=== PATIENT | female | born 1995 | race Caucasian/White ===

== ENCOUNTER → 2020-06-11 06:55 | Outpatient (BNVA) | payer BC, SELFPAY | PROVIDERS: PCP Family Medicine; Visit Provider Surgery | DX: Z76.89 Persons encountering health services in other specified circumstances (principal) ==

== ENCOUNTER → 2020-07-12 08:03 | Outpatient (BNVA) | payer BC, SELFPAY | PROVIDERS: PCP Family Medicine; Referring Provider Family Medicine; Visit Provider Surgery | DX: Z76.89 Persons encountering health services in other specified circumstances (principal) ==

== ENCOUNTER → 2020-10-13 08:26 | Outpatient (BNVA) | payer BC, SELFPAY | PROVIDERS: PCP Family Medicine; Visit Provider Physician Assistant ==

== ENCOUNTER 2020-10-18 07:05 | Outpatient (REF) | payer BC, SELFPAY ==
[2020-10-18 07:40] LABS: MANUAL DIFF FLAG NO
[2020-10-18 07:46] LABS: Basophils Percent Auto 0.6 % (0-2); Eosinophils Absolute Auto 0.1 X10*3/uL (0.0-0.4); Eosinophils Percent Auto 1.7 % (0-4); Hematocrit 39.6 % (37-47); Hemoglobin 13.2 g/dl (12.0-16.0); Imm Gran Abs Auto 0.02 X10*3/uL (0.00-0.03); Imm Gran Pct Auto 0.3 % (0.0-0.4); Lymphocytes Percent Auto 41.8 % (20-40); Mean Corpuscular HGB Conc 33.3 g/dl (31.0-35.0); Mean Corpuscular Hemoglobin 29.8 pg (27.0-33.0); Mean Corpuscular Volume 89.4 fL (80-98); Mean Platelet Volume 9.3 fL (9.4-12.3); Monocytes Absolute Auto 0.5 X10*3/uL (0.1-1.2); Monocytes Percent Auto 6.7 % (2-11); Neutrophils Absolute Auto 3.5 X10*3/uL (2.0-8.3); Neutrophils Percent Auto 48.9 % (45-73); Platelet Count 374 X10*3/uL (160-400); Red Blood Count 4.43 X10*6/uL (4.20-5.50); Red Cell Distribution Width 12.1 % (11.0-16.0); White Blood Count 7.2 X10*3/uL (4.8-10.8)
[2020-10-18 07:56] LABS: Estimated Average Glucose 97 mg/dL
[2020-10-18 08:40] LABS: Alanine Aminotransferase 18 U/L (0-31); Albumin Level 4.5 g/dL (3.5-5.0); Alkaline Phosphatase 74 U/L (39-117); Anion Gap 12 (12-20); Aspartate Amino Transferase 15 U/L (5-31); Bilirubin Total 0.4 mg/dL (0.0-1.0); Blood Urea Nitrogen 10 mg/dL (9-16); C Reactive Protein 0.27 mg/dL (< or = 0.50); Calcium 9.6 mg/dL (8.4-10.2); Carbon Dioxide 28 mmol/L (22-29); Chloride 105 mmol/L (96-108); Cholesterol 193 mg/dL; Estimated Glomerular Filt Rate > 60; Glucose Fasting 95 mg/dL (60-99); HDL Cholesterol 65 mg/dL; Iron 136 mcg/dL (30-160); LDL Cholesterol Calculated 109 mg/dl; Percent Iron Saturation 48 % (15-50); Potassium 4.2 mmol/L (3.3-5.1); Sodium 141 mmol/L (135-145); Total Iron Binding Capacity 286 mcg/dL (228-428); Total Protein 7.2 g/dL (6.5-8.0); Triglycerides 96 mg/dL; Unsaturated Iron Binding 150 ug/dL
[2020-10-18 08:45] LABS: Ferritin 124 ng/mL (10-122); TSH reflex Free T4 1.36 uIU/mL (0.32-4.0); Vitamin D 25-OH Total 15.6 ng/mL (>30)
[2020-10-18 09:05] LABS: Folate 10.6 ng/mL (> or = 4.0); Vitamin B12 265 pg/mL (200-900)
[2020-10-19 09:53] LABS: Calcium (PTHI) 9.5 mg/dL (8.6-10.2); PTHI 71 pg/mL (14-64)
[2020-10-20 15:33] LABS: Zinc 91 mcg/dL (60-130)
[2020-10-22 18:06] LABS: Vitamin A 43 mcg/dL (38-98)
[2020-10-23 11:51] LABS: Vitamin B1 12 nmol/L (8-30)
== END 2020-10-18 07:06 | disposition home or self-care (01) ==
LOC: HO.LAB 07:05
PROVIDERS: PCP Family Medicine; Visit Provider Physician Assistant
DX: E66.01 Morbid (severe) obesity due to excess calories (principal); K91.2 Postsurgical malabsorption, not elsewhere classified; Z68.37 Body mass index [BMI] 37.0-37.9, adult; Z90.3 Acquired absence of stomach [part of]; Z98.84 Bariatric surgery status
CPT/HCPCS: 36415; 80053; 80061; 82306; 82607; 82728; 82746; 83036; 83525; 83540; 83970; 84425; 84443; 84590; 84630; 85025; 86140

== ENCOUNTER → 2020-10-19 08:54 | Outpatient (BNVA) | payer BC, SELFPAY | PROVIDERS: PCP Family Medicine; Visit Provider Dietitian, Registered ==

== ENCOUNTER 2023-03-22 11:55 | Outpatient (REF) | payer BC, SELFPAY ==
[2023-03-22 13:44] LABS: Estimated Average Glucose 91 mg/dL; Hemoglobin A1c % 4.8 %
[2023-03-22 14:20] LABS: Cholesterol 177 mg/dL; HDL Cholesterol 51 mg/dL; LDL Cholesterol Calculated 107 mg/dl; Triglycerides 99 mg/dL
[2023-03-23 05:07] LABS: ~HepC Num1 0.09 S/CO (0.00-0.79); ~Hepatitis C Antibody Nonreactive (Nonreactive)
[2023-03-23 05:23] LABS: HIV AB/AG Nonreactive (Nonreactive); HIV Num 1 0.06 S/CO (0.00-0.99)
== END 2023-03-22 11:56 | disposition home or self-care (01) ==
LOC: HO.HHCL 11:55
PROVIDERS: Visit Provider Family Medicine
DX: Z00.00 Encounter for general adult medical examination without abnormal findings (principal); Z11.4 Encounter for screening for human immunodeficiency virus [HIV]
CPT/HCPCS: 36415; 80061; 83036; 86803; 87389

== ENCOUNTER 2023-03-29 13:29 | Outpatient (REF) | payer BC, SELFPAY ==
--- NOTE | ~2023-03-29 | US_ITS ---
EXAMINATION: US PELVIC CLINICAL INFORMATION: Pelvic pain. Last menstrual period 03/23/2023. COMPARISON: None. TECHNIQUE: Multiple best-scale and color Doppler images of the right upper abdomen were obtained using real-time ultrasound. FINDINGS: The uterus is heterogeneous and measures 6.5 x 2.6 x 3.6 cm and is anteverted. No discrete fibroids are identified. Nabothian cysts present. No significant free fluid. Left ovary measures 3.2 x 1.9 x 2.3 cm, volume 7.3 mL, and is unremarkable. Right ovary measures 4.0 x 1.8 x 1.7 cm, volume 6.4 mL. Right ovarian 1.7 x 1.7 x 1.6 cm cyst appears simple, likely physiologic, and there is no indication for follow-up imaging. Endometrium is multilayered with thickness of 0.8 cm. US/US pelvic and transvag pre pos IMPRESSION: 1. No discrete fibroids. 2. Endometrium is multilayered with thickness of 0.8 cm. 3. Right ovarian 1.7 cm cyst appears simple, likely physiologic, and there is no specific indication for follow-up imaging. Correlation with clinical exam recommended to determine further management.
== END 2023-03-29 13:30 | disposition home or self-care (01) ==
LOC: HO.US 13:29
PROVIDERS: PCP Family Medicine; Visit Provider Family Medicine
DX: R10.2 Pelvic and perineal pain (principal)
CPT/HCPCS: 76830; 76856

== ENCOUNTER 2023-06-27 11:10 | Outpatient (AMB) | payer BC, SELFPAY ==
--- NOTE | 2023-06-27 11:20 | MHC.OFFVIS ---
Intake Vital Signs 06/27/23 11:25 Height 5 ft 2.5 in Weight 163 lb BMI 29.3 BP 114/55 L Blood Pressure Location Rt brachial Position Sitting Pulse 85 Intake Visit Reasons: Hemorrhoids Intake Note: This patient presents for an assessment for hemorrhoids. Patient c/o; reports minimal pain, denies rectal bleeding, reports straining with bowel movements. Professor Of Theatre Required: No Adult Specialist: Adult Specialist Present (Manuela-Manisha) Accompanied by: Self / Same As Patient Allergies squid [SQUID] Allergy (Unknown, Unverified 05/27/20 17:36) HIVES Squid Allergy (Unknown, Uncoded 06/10/20 15:38) Rash Medication List - Last Reconciled 06/27/23 by Shelton Santana MD calcium citrate-vitamin D3 250 mg-5 mcg (200 unit) 2 tabs PO BID calcium citrate-vitamin D3 315 mg-6.25 mcg (250 unit) 1 tab PO DAILY docusate sodium (Colace) 100 mg PO DAILY multivitamin 1 tab PO DAILY phentermine 37.5 mg PO DAILY phentermine 37.5 mg PO DAILY valacyclovir (Valtrex) 500 mg PO DAILY HPI Hemorrhoids HPI Details 28-year-old female referred for hemorrhoids. She says that she has had hemorrhoids since 2018. She said she had issues with chronic constipation after she had sleeve gastrectomy for obesity at that time. She could feel external hemorrhoids that would occasionally become swollen. She had a revision of her sleeve gastrectomy last October,. Since then, she says that she has had more frequent bowel movements and therefore has been having a lot of irritation with her hemorrhoids. She says that these hemorrhoids frequently become swollen and a last month, she says that she could not even sit down for 3 weeks because of the pain and swelling. She also has noticed some significant pain with bowel movements recently. She says that she feels this sharp pain like a knife cutting her anus whenever she passes stools. She would notice small amounts of blood on wiping. She has had no anal surgery in the past. She has had no vaginal delivery. [facility] Medical History (Updated 06/27/23 @ 11:45 by Shelton Santana MD) Anal fissure Hemorrhoids with complication BMI 37.0-37.9, adult Intestinal malabsorption following gastrectomy Obesity Intestinal malabsorption Surgical History S/P laparoscopic sleeve gastrectomy History of sleeve gastrectomy Family History Father No problems noted. Mother Cancer Arthritis of knee Diabetes Hypertension Brother No problems noted. Brother No problems noted. Brother No problems noted. Sister No problems noted. Sister No problems noted. Social History Alcohol intake: unknown Review of Systems Const Denies chills and Denies fever(s) Card Denies chest pain, Denies dyspnea and Denies dyspnea on exertion Resp Denies cough, Denies dyspnea and Denies dyspnea on exertion GI Denies hematochezia and Denies change in bowel habits Denies hematuria Musc Denies back pain and Denies limited range of motion Neuro Denies focal weakness and Denies convulsions Psych Denies depression and Denies mood swings Physical Exam Const General: comfortable and no acute distress Orientation/consciousness: patient oriented x3 Neck Neck: Yes no lymphadenopathy Resp Auscultation: clear to auscultation bilaterally Cardio Rhythm: regular rhythm GI Other: Rectal exam shows moderate size external hemorrhoids anteriorly there was note of a posterior midline fissure on the distal dentate line seen with retraction of the buttocks. Palpation (GI): Soft to palpation, nontender and no guarding Neuro General: patient oriented x3 Office Procedures Anoscopy She was in qiana-knife position. The anoscope was gently inserted. A full examination of the anal canal was done. She did not appear to be hypertonic with regards to her sphincter although she did have tenderness and pain with insertion of the anoscope. She had this mixed internal external column, moderate size anteriorly. There were no other lesions. Again this posterior midline fissure on the posterior dentate line was seen [id number] Assessment & Plan Assessment & Plan (1) Hemorrhoids with complication: Code(s): K64.8 - Other hemorrhoids Plan: Examination shows a mixed internal external hemorrhoidal column anteriorly.I explained to her the technique of exam under anesthesia and hemorrhoidectomy. I reviewed the risks including but not limited to bleeding, infections, pain and poor healing, as well as the benefits and alternatives. She says that she has had significant issues and would like to proceed with hemorrhoidectomy as these hemorrhoids have been bothering her a lot. She wants to proceed with hemorrhoidectomy. Examination also shows a distal anoderm posterior midline fissure. I told her that we will probably proceed with lateral internal sphincterotomy as well as she complains of pain with bowel movements like a knife cutting her anus. I reviewed with her what to expect postoperatively. (2) Anal fissure: Code(s): K60.2 - Anal fissure, unspecified Plan: She also understands the technique of lateral internal sphincterotomy Coding Level of Care Code New Pt Level 3 (11818) Diagnoses Hemorrhoids with complication K64.8 Anal fissure K60.2 CPT Codes Details - CPT: 68477-[id number] ([id number])
[2023-06-27 11:25] VITALS: BP 114/55; PULSE 85; BMI 29.3
== END 2023-06-27 11:42 | disposition home or self-care (01) ==
PROVIDERS: PCP Family Medicine; Referring Provider Family Medicine; Visit Provider Surgery
DX: K64.8 Other hemorrhoids (principal); K60.2 Anal fissure, unspecified
CPT/HCPCS: 46600; 99204

== ENCOUNTER → 2023-06-27 11:10 | Outpatient (BNVA) | payer BC, SELFPAY | PROVIDERS: PCP Family Medicine; Referring Provider Family Medicine; Visit Provider Surgery | DX: K64.8 Other hemorrhoids (principal); K64.4 Residual hemorrhoidal skin tags; K60.2 Anal fissure, unspecified | CPT/HCPCS: 46600 ==

== ENCOUNTER 2023-07-20 08:03 | Day surgery (SDC) | payer BC, SELFPAY ==
[2023-07-18 14:42] VITALS: BMI 29.3
--- NOTE | 2023-07-19 10:12 | HO.ANESPROP2 ---
Documented by User: Iris Messer NP 07/19/23 10:12 HPI - Anesthesia Eval Consult details Narrative: 28yo F for Hemorrhoidectomy, Lateral Internal Sphincterotomy PMFSH Active Problems Active Problems: All Active Problems (Updated 06/27/23 @ 11:45 by Shelton Santana MD) Anal fissure (Acute) Hemorrhoids with complication (Acute) BMI 37.0-37.9, adult (Acute) S/P laparoscopic sleeve gastrectomy (Acute) Intestinal malabsorption following gastrectomy (Acute) BMI 32.0-32.9,adult (Acute) BMI 31.0-31.9,adult (Acute) Obesity (Acute) Intestinal malabsorption (Acute) Past Medical History Medical History Anal fissure Hemorrhoids with complication BMI 37.0-37.9, adult Intestinal malabsorption following gastrectomy Obesity Intestinal malabsorption Family History Family History Father No problems noted. Mother Cancer Arthritis of knee Diabetes Hypertension Brother No problems noted. Brother No problems noted. Brother No problems noted. Sister No problems noted. Sister No problems noted. Surgical History Surgical History S/P laparoscopic sleeve gastrectomy History of sleeve gastrectomy Social History Social History Alcohol intake: unknown Patient Tobacco Use Status: Never used Tobacco Are you DNR?: No Advance Directives: No Advance Directives Information Provided: Yes Meds Allergies Allergy/AdvReac Type Severity Reaction Status Date / Time No Known Allergies Allergy Verified 07/20/23 08:31 Home Medications Medication Instructions Recorded Confirmed Last Taken Type calcium citrate 315 mg 1 tab PO DAILY 06/10/20 06/27/23 Unknown History calcium-vitamin D3 6.25 mcg (250 unit) tablet docusate sodium 100 mg capsule 100 mg PO DAILY 06/10/20 06/27/23 Unknown History (Colace) multivitamin 1 tab PO DAILY 06/10/20 06/27/23 Unknown History valacyclovir 500 mg tablet 500 mg PO DAILY 06/10/20 06/27/23 Unknown History (Valtrex) phentermine 37.5 mg capsule 37.5 mg PO DAILY 06/11/20 06/27/23 Unknown History Exam Exam Date and Time: July 19, 2023 1012 Height,Weight and Vital Signs: Height 5 ft 2.5 in Weight 73.936 kg Assessment and Plan Assessment Anesthesia Assessment: Chart Reviewed Documented by User: Tona Wells MD 07/20/23 12:18 PMF Active Problems Active Problems: All Active Problems (Updated 07/20/23 @ 11:20 by Tona Wells MD) Anal fissure (Acute) Hemorrhoids with complication (Acute) BMI 37.0-37.9, adult (Acute) S/P laparoscopic sleeve gastrectomy (Acute) Intestinal malabsorption following gastrectomy (Acute) BMI 32.0-32.9,adult (Acute) BMI 31.0-31.9,adult (Acute) Obesity (Acute) Intestinal malabsorption (Acute) Past Medical History Medical History Anal fissure Hemorrhoids with complication BMI 37.0-37.9, adult Intestinal malabsorption following gastrectomy Obesity Intestinal malabsorption Family History Family History Father No problems noted. Mother Cancer Arthritis of knee Diabetes Hypertension Brother No problems noted. Brother No problems noted. Brother No problems noted. Sister No problems noted. Sister No problems noted. Family history of problems with anesthesia: No Surgical History Surgical History S/P laparoscopic sleeve gastrectomy History of sleeve gastrectomy History of Problems with Anesthesia: No Social History Social History Alcohol intake: unknown Patient Tobacco Use Status: Never used Tobacco Are you DNR?: No Advance Directives: No Advance Directives Information Provided: Yes Meds Allergies Allergy/AdvReac Type Severity Reaction Status Date / Time No Known Allergies Allergy Verified 07/20/23 08:31 Home Medications Medication Instructions Recorded Confirmed Last Taken Type calcium citrate 315 mg 1 tab PO DAILY 06/10/20 06/27/23 Unknown History calcium-vitamin D3 6.25 mcg (250 unit) tablet docusate sodium 100 mg capsule 100 mg PO DAILY 06/10/20 06/27/23 Unknown History (Colace) multivitamin 1 tab PO DAILY 06/10/20 06/27/23 Unknown History valacyclovir 500 mg tablet 500 mg PO DAILY 06/10/20 06/27/23 Unknown History (Valtrex) phentermine 37.5 mg capsule 37.5 mg PO DAILY 06/11/20 06/27/23 Unknown History Exam Height,Weight and Vital Signs: Height 5 ft 2.5 in Weight 73.936 kg Vital Signs Temp Pulse Resp BP Pulse Ox O2 Del Method 07/20/23 08:05 97 F 65 20 126/77 97 Room Air Pertinent Lab Results Pertinent Lab Results: Lab Results 07/20/23 Range/Units 07:40 Urine Test NEGATIVE (NEGATIVE) Airway Mallampati Class: II TM Dist: >3cm Neck ROM: Full Loose/Missing/Broken Teeth: No (Denies broken, loose, missing teeth) Heart: RRR Lungs: CTAB Assessment and Plan Assessment Anesthesia Assessment: Anesthesia Plan Discussed Final Anesthetic Review Family History of Problems with Anesthesia: No History of Problems with Anesthesia: No NPO: Yes ASA Class: III Final Preanesthetic Review: No Changes in Pt Med Stat, Meds/Allgs Chart Reviewed, Consent Obtained/Reviewed and Anes Risks/Benef Reviewed Patient Risk: Intermediate Procedure Risk: Low Assessment/Block/Sedation in SS: Assess/Block/Sedation-SS Anesthetic Plan Anesthetic Plan: GA Disposition: Standard PACU
[2023-07-20 08:05] VITALS: BP 126/77; PULSE 65; RESP 20; TEMP 36.1; O2SAT 97
[2023-07-20 08:18] LABS: UPreg QC Valid YES
[2023-07-20 08:19] LABS: Urine Pregnancy NEGATIVE (NEGATIVE)
[2023-07-20] MEDS: Lactated Ringers 1,000 ML 100 ML IVCONT (08:31)
--- NOTE | 2023-07-20 11:13 | MHC.SHP ---
Pre-Procedural Eval Section A Date of Service: 07/20/23 The patient is an INPATIENT: No Changes since office visit: No Cold of Flu in the past 2 weeks, No New Medical Problems, No Changes in Medication and No Patient answered all questions The History & Physical has been completed within 30 days and I have reviewed it.: Yes Section B Chief Complaint: Other hemorrhoids, Anal fissure, unspecified Allergies: Allergies Allergy/AdvReac Type Severity Reaction Status Date / Time No Known Allergies Allergy Verified 07/20/23 08:31 Plan I have reviewed the history and physical and performed a pertinent physical examination on my patient. No changes have occurred unless specified. Time Spent With Patient Time: Total time managing care of this patient today ____ minutes.
--- NOTE | 2023-07-20 12:19 | P.OP_ITS ---
Operative Note Operative Note Date of Service: 07/20/23 Narrative: Preop diagnosis: Hemorrhoids with pain and swelling Postop diagnosis: Internal and external hemorrhoids with pain and swelling Procedure: Exam under anesthesia, hemorrhoidectomy times 1 column Surgeon: Shelton Santana MD The patient is a 28-year-old female with chronic complaints of pain and swelling with her hemorrhoids. Examination in the office reviewed what appeared to be a prominent external hemorrhoidal column anteriorly. She understood the technique of hemorrhoidectomy as well as the risks, benefits, and alternatives. She was brought to the operating room. He was placed in prone qiana-knife positi on under general anesthesia via endotracheal tube. The buttocks were retracted with wide tape laterally. The perianal area was prepped draped in the usual sterile fashion. A surgical time-out was done. The patient received Cefotan 2 g IV preoperatively Examination of the anal orifice revealed hemorrhoidal column on the left anterior chest off of the midline. This was appeared to be mostly external. I inserted the abuse Duggan retractor. I examined the anal canal circumferentially. Again this hemorrhoidal column was seen and was mostly external without all the bit of an internal component. On the anterior midline was note of what appeared to be superficial fissure in the distal anoderm. However, there was no hypertonicity of the anal sphincter I applied a Roger grasper at the hemorrhoidal column to retract this out the field. IV the figure of 8 stitch at the pedicle using chromic 3-0. I made an incision around this hemorrhoidal column to the perianal skin with a blade 15. I excised this hemorrhoidal column above the plane of the sphincters with scissors. I closed this incision with a running chromic 3-0 stitch. Additional [id number] hemostatic sutures were placed I did not proceed with sphincterotomy as there was no hypertonicity. I cauterized the fissure bed. I infiltrated the perianal area with Marcaine 0.5% for postop analgesia. Once hemostasis was confirmed, the procedure was completed The patient tolerated procedure well. There were no immediate complications. Initial and final counts of sponges and instruments were correct. Estimated blood loss about 30 cc. The patient was extubated without difficulty and transferred to the recovery room with stable vital signs.
[2023-07-20 12:36] VITALS: BP 134/93; PULSE 114; RESP 16; TEMP 36.5; O2SAT 97
[2023-07-20 12:41] VITALS: BP 117/67; PULSE 92; RESP 16; O2SAT 97
[2023-07-20 12:46] VITALS: BP 119/67; PULSE 89; RESP 18; O2SAT 98
[2023-07-20 12:51] VITALS: BP 126/72; PULSE 90; RESP 18; TEMP 37.4; O2SAT 99
[2023-07-20 13:06] VITALS: BP 121/67; PULSE 88; RESP 18; TEMP 37.1; O2SAT 99
== END 2023-07-20 13:55 | disposition home or self-care (01) ==
PROVIDERS: Nurse Practitioner; PCP Family Medicine; Visit Provider Surgery
PROC: (CPT 46255; principal; 2023-07-20 09:40)
DX: K64.8 Other hemorrhoids (principal); K64.4 Residual hemorrhoidal skin tags; K60.2 Anal fissure, unspecified; K59.09 Other constipation; K91.2 Postsurgical malabsorption, not elsewhere classified; Z98.84 Bariatric surgery status; Z79.899 Other long term (current) drug therapy
CPT/HCPCS: 46255; 81025; 88304; J1100; J2250; J2405; J2704; J2765; J2795; J3010

== ENCOUNTER → 2023-07-20 08:03 | Outpatient (BNV) | payer BC, SELFPAY | PROVIDERS: PCP Family Medicine; Visit Provider Surgery | DX: K64.8 Other hemorrhoids (principal) | CPT/HCPCS: 46255 ==

== ENCOUNTER 2023-08-01 10:44 | Outpatient (AMB) | payer BC, SELFPAY ==
[2023-08-01 10:49] VITALS: BP 129/58; PULSE 83; BMI 31.8
--- NOTE | 2023-08-01 10:49 | A.OFFVIS_ITS ---
Intake Vital Signs 08/01/23 10:49 Height 5 ft 0.5 in Weight 165 lb 8 oz BMI 31.8 BP 129/58 L Blood Pressure Location Lt brachial Position Sitting Pulse 83 Intake Visit Reasons: S/P hemorrhoidectomy Intake Note: Patient is seen in office for post op assessment post hemorrhoidectomy. Patient c/o: minimal bleeding denies constipation or other concerns surgery: 07/20/23 Disc Pad Grinder Required: No Accompanied by: Self / Same As Patient Allergies No Known Allergies Allergy (Verified 07/20/23 08:31) HPI S/P hemorrhoidectomy HPI Details She underwent hemorrhoidectomy x1 column last 07/20/2023. She tolerated procedure well. She currently denies significant complaints. She says she feels well overall. [facility] Medical History Anal fissure Hemorrhoids with complication BMI 37.0-37.9, adult Intestinal malabsorption following gastrectomy Obesity Intestinal malabsorption Surgical History (Updated 07/30/23 @ 15:09 by Anna Ash Manisha) H/O: hemorrhoidectomy (07/20/23) S/P laparoscopic sleeve gastrectomy History of sleeve gastrectomy Family History Father No problems noted. Mother Cancer Arthritis of knee Diabetes Hypertension Brother No problems noted. Brother No problems noted. Brother No problems noted. Sister No problems noted. Sister No problems noted. Alcohol intake: unknown Patient Tobacco Use Status: Never used Tobacco Review of Systems Const Denies chills and Denies fever(s) Card Denies chest pain, Denies dyspnea and Denies dyspnea on exertion Resp Denies cough, Denies dyspnea and Denies dyspnea on exertion GI Denies hematochezia and Denies change in bowel habits Denies hematuria Musc Denies back pain and Denies limited range of motion Neuro Denies focal weakness and Denies convulsions Psych Denies depression and Denies mood swings Physical Exam Const General: comfortable and no acute distress GI Other: Hemorrhoidectomy site is well healed, note of on area of edema next to this Assessment & Plan Assessment & Plan (1) Hemorrhoids with complication: Code(s): K64.8 - Other hemorrhoids Plan: Status post hemorrhoidectomy. Her incision is healing well. There is note of some residual edema. I advised her on avoiding straining and constipation. It will be helpful for her to continue doing hot Sitz baths. She can otherwise follow up on a p.r.n. basis. Coding Level of Care Code Global (61277) Diagnoses Hemorrhoids with complication K64.8
== END 2023-08-01 11:07 | disposition home or self-care (01) ==
PROVIDERS: PCP Family Medicine; Visit Provider Surgery
DX: K64.8 Other hemorrhoids (principal)
CPT/HCPCS: 99024

== ENCOUNTER → 2023-08-01 10:44 | Outpatient (BNVA) | payer BC, SELFPAY | PROVIDERS: PCP Family Medicine; Visit Provider Surgery ==

== ENCOUNTER 2024-01-06 21:20 | Emergency (ER) | payer OTHER, SELFPAY ==
[2024-01-06 22:02] VITALS: BP 142/88; PULSE 90; RESP 16; TEMP 36.6; O2SAT 100; BMI 29.6
--- NOTE | 2024-01-06 23:32 | ED_ITS ---
HPI - Extremity Problem General Chief complaint: Extremity Injury, Upper Stated complaint: thumb lac Time Seen by Provider: 01/06/24 23:32 Source: patient Mode of arrival: ambulatory Limitations: no limitations History of Present Illness HPI Narrative: Patient is a 28 year old assigned female at with a history of gastric sleeve presenting to the emergency department today with a right thumb laceration. Patient states that she was washing dishes when she cut her right thumb on a broken shot glass. Patient denies any dizziness, lightheadedness, abdominal pain, nausea, vomiting, fever, chills, blurry vision, double vision, loss of vision, chest pain, difficulty breathing, shortness of breath, back pain, night sweats, pain with urination, increased urinary frequency, increased urinary urgency, blood in her urine or stool, syncope or a near syncopal episode, bowel incontinence, bladder incontinence, bowel retention, bladder retention, or any other complaints at this time. MD Complaint: extremity pain Onset (ago): hour(s) Pain Consistency: constant Location: right (thumb) Severity scale (1-10): 3 Relieving factors: nothing Exacerbating factors: nothing Associated symptoms: denies other symptoms Related Data Home Medications ?Medication ?Instructions ?Recorded ?Confirmed calcium citrate 315 mg 1 tab PO DAILY 06/10/20 06/27/23 calcium-vitamin D3 6.25 mcg (250 unit) tablet docusate sodium 100 mg capsule 100 mg PO DAILY 06/10/20 06/27/23 (Colace) multivitamin 1 tab PO DAILY 06/10/20 06/27/23 valacyclovir 500 mg tablet 500 mg PO DAILY 06/10/20 06/27/23 (Valtrex) phentermine 37.5 mg capsule 37.5 mg PO DAILY 06/11/20 06/27/23 Previous Rx's ?Medication ?Instructions ?Recorded phentermine 37.5 mg capsule 37.5 mg PO DAILY weight loss #30 06/11/20 caps calcium citrate 250 mg 2 tab PO BID #120 tabs 10/22/20 calcium-vitamin D3 5 mcg (200 unit) tablet docusate sodium 100 mg capsule 100 mg PO BID #90 caps 07/20/23 (Colace) ibuprofen 600 mg tablet 600 mg PO Q6H PRN pain #30 tabs 07/20/23 oxycodone-acetaminophen 5 mg-325 1 tab PO Q4-6H PRN pain #30 tabs 07/20/23 mg tablet (Percocet) cephalexin 500 mg capsule 500 mg PO Q6H 7 days #28 caps 01/07/24 Allergies Allergy/AdvReac Type Severity Reaction Status Date / Time No Known Allergies Allergy Verified 01/06/24 22:04 Review of Systems 2 Constitutional: Constitutional: Reports no additional constitutional complaints, Denies chills, Denies fever(s) and Denies night sweats Eyes: Eyes: Reports no additional eye complaints, Denies blurry vision, Denies change in vision, Denies diplopia, Denies eye discharge, Denies loss of vision and Denies eye pain ENT: Denies dizziness Cardiovascular: Cardiovascular: Reports no additional cardiovascular complaints, Denies chest pain, Denies lightheadedness, Denies Loss of Consciousness and Denies dyspnea Respiratory: Respiratory: Reports no additional respiratory complaints and Denies dyspnea Gastrointestinal: Gastrointestinal: Reports no additional gastrointestinal complaints, Denies abdominal pain, Denies melena, Denies hematochezia, Denies change in bowel habits and Denies change in stool character Genitourinary: Genitourinary: Denies hematuria, Denies urinary frequency, Denies dysuria, Denies urinary incontinence, Denies urinary hesitancy and Denies urinary urgency Musculoskeletal: Musculoskeletal: Reports no additional musculoskeletal complaints, Denies numbness and Denies tingling Comments: right thumb laceration Neurologic: Denies dizziness, Denies loss of vision, Denies numbness and Denies tingling Psychiatric: Psychiatric: Reports no additional psychiatric complaints Endocrine: Endocrine: Reports no additional endocrine complaints Hematologic/Lymphatic: Hematologic/Lymphatic: Reports no additional hematologic/lymphatic complaints Allergic/Immunologic: Allergic/Immunologic: Reports no additional allergic/immunologic complaints [facility] Past Medical History Attestation statement: The following information was validated with the patient. Source: old records reviewed and nursing notes reviewed Medical History Anal fissure Hemorrhoids with complication BMI 37.0-37.9, adult Intestinal malabsorption following gastrectomy Obesity Intestinal malabsorption Surgical History H/O: hemorrhoidectomy (07/20/23) S/P laparoscopic sleeve gastrectomy History of sleeve gastrectomy Family History Family History Father No problems noted. Mother Cancer Arthritis of knee Diabetes Hypertension Brother No problems noted. Brother No problems noted. Brother No problems noted. Sister No problems noted. Sister No problems noted. Social History Social History Alcohol intake: unknown Comment: NONE Patient Tobacco Use Status: Never used Tobacco Advance Directives: No Advance Directives Information Provided: No Do you have a plan to hurt others: No Plan Physical Exam 2 Vital Signs: Vital Signs: Last Vital Signs Temp 97.8 F 01/06/24 22:02 Pulse 90 01/06/24 22:02 Resp 16 01/06/24 22:02 BP 142/88 H 01/06/24 22:02 Pulse Ox 100 01/06/24 22:02 O2 Del Method Room Air 01/06/24 22:02 BMI result Body Mass Index 29.6 Const: General: cooperative, no acute distress, alert and awake Nutritional Appearance: well nourished Orientation/consciousness: patient oriented x3 Limitations: no limitations HEENT: Head: Yes normal to inspection and Yes atraumatic Ears: hearing grossly normal bilaterally and external ears normal General nose exam: Normal external nose present, no nasal discharge noted and no epistaxis Face and sinus: Yes normal facial exam, No abrasion and No laceration Mouth: Normal oral and palatal mucosa present, no drooling and no muffled voice Eyes: General: appearance normal, both eyes and all related structures P eriorbital: periorbital findings normal Eyelids: Yes eyelids normal C onjunctivae: conjunctivae normal Pupils: Equal, round and reactive pupils present EOM: EOMs intact bilaterally Neck: Neck: Yes normal visual inspection, Yes full ROM and Yes no lymphadenopathy Chest: Chest palpation & inspection: normal inspection of the chest Resp: Effort & Inspection: normal respiratory effort and able to speak in complete sentences GI: Inspection: Yes normal to inspection Neuro: General: patient oriented x3 and moves all extremities Cranial nerves: Yes Equal, round and reactive pupils present Cognition (Neuro): n ormal cognition Motor exam (neuro): 5/5 motor strength present throughout Sensory Exam: Normal double simultaneous stimulation for sensation C oordination: [id number] test normal Extrem: General: Yes full ROM and Yes capillary refill normal Hand/finger images: 1. 2.5cm laceration, gaping, no active bleeding Psych: Appearance: grossly normal Mental Status: mental status grossly normal Affect: normal affect Attitude: cooperative Thought process: N ormal thought process present Thought content: Normal thought content present Insight: Good insight present (Psych) Medications Administered Discontinued Medications Generic Name Dose Route Start Last Admin Trade Name Lino PRN Reason Stop Dose Admin Lidocaine HCl 5 ml 01/06/24 23:40 01/07/24 00:05 Lidocaine Hcl 1 % Mpf 5 Ml Vial SUBCUT 01/06/24 23:41 5 ml ONCE ONE Administration Medical Decision Making Medical Decision Making [facility] Narrative: Patient is a 28 year old assigned female at with a history of gastric sleeve presenting to the emergency department today with a right thumb laceration. Patient's physical exam showed a 3cm laceration to the right dorsal thumb with some gaping but no active bleeding. I explained my physical exam findings to the patient. I answered all questions asked by the patient. Patient's laceration was repaired, per procedure note, without incident. Patient's PMS was intact prior to and after laceration repair. I stressed the importance of the patient taking her medication as prescribed. I stressed the importance of the patient following up with her primary care provider. I stressed the importance of the patient returning to the emergency department immediately if her symptoms were to worsen or if she were to develop any dizziness, shortness of breath, difficulty breathing, chest pain, blurry vision, loss of vision, nausea, vomiting, abdominal pain, fever, chills, back pain, or any other complaints. Patient verbalized agreement and understanding with this treatment plan and discharge. Differential Diagnosis Differential Diagnoses: The differential diagnosis associated with the presentation includes Thumb laceration Thumb abrasion Thumb injury Admission/Observation Consideration of admission/observation: Escalation of care including admission/observation considered Patient would have been admitted to the hospital had her work up had any findings where hospital admission was appropriate and her clinical presentation warranted hospital admission. Tests considered The following testing was considered but not selected: I considered a hand x-ray however, the patient's mechanism of injury did not warrant it at this time. I discussed this with the patient who verbalized understanding and agreement. Prescription Management I considered prescription management with: Antibiotic (given mechanism of injury, patient prescribed a prophylactic antibiotic.) Procedures Laceration Laceration 1: Site: other (1st digit) Side (If applicable): right Size (cm): 3 Description: linear Depth: simple, single layer Local Anesthetic: lidocaine 1% Amount of anesthesia used (mL): 5 Pre-repair: wound explored, irrigated extensively and deep structures intact Skin layer closed with: other (prolene) Size (cm): 6-0 Number of sutures: 6 Technique: simple, interrupted Discharge Plan Discharge Clinical Impression: Laceration of thumb Patient Disposition: Home, Self-Care Instructions: Care For Your Stitches (DC), Laceration (DC) Additional Instructions: Do NOT soak the affected area. Have your sutures removed in 7-10 days (6 total). Take your antibiotic as prescribed. Perform daily wound checks and dressing changes. Follow up with your primary care provider. Return to the emergency department immediately if your symptoms worsen or if you develop any dizziness, shortness of breath, difficulty breathing, chest pain, blurry vision, loss of vision, nausea, vomiting, abdominal pain, fever, chills, back pain, or any other complaints. Prescriptions: New cephalexin 500 mg capsule 500 mg PO Q6H 7 Days Qty: 28 0RF No Action calcium citrate-vitamin D3 250 mg-5 mcg (200 unit) tablet 2 tab PO BID Qty: 120 11RF docusate sodium [Colace] 100 mg capsule 100 mg PO BID Qty: 90 2RF oxycodone-acetaminophen [Percocet] 5-325 mg tablet 1 tab PO Q4-6H PRN (Reason: pain) Qty: 30 0RF Rx Instructions: Partial Fill upon patient request. ibuprofen 600 mg tablet 600 mg PO Q6H PRN (Reason: pain) Qty: 30 0RF phentermine 37.5 mg capsule 37.5 mg PO DAILY Rx Instructions: must administer 30 minutes before or 1-2 hours after breakfast phentermine 37.5 mg capsule 37.5 mg PO DAILY Qty: 30 0RF Rx Instructions: must administer 30 minutes before or 1-2 hours after breakfast valacyclovir [Valtrex] 500 mg tablet 500 mg PO DAILY multivitamin Tablet 1 tab PO DAILY docusate sodium [Colace] 100 mg capsule 100 mg PO DAILY calcium citrate-vitamin D3 315 mg- 250 unit tablet 1 tab PO DAILY Referrals: Fatemeh Rios MD [Primary Care Provider] - Stand Alone Forms: Work/School Release Print Language: Divehi
[2024-01-07] MEDS: Lidocaine HCl 1 % MPF 5 ML VIAL SUBCUT (00:05)
[2024-01-07 00:27] VITALS: BP 131/72; PULSE 84; RESP 17; TEMP 36.5; O2SAT 98
[2024-01-07 00:28] VITALS: BP 131/72; PULSE 84; RESP 17; TEMP 36.5; O2SAT 98
== END 2024-01-07 00:29 | disposition home or self-care (01) ==
PROVIDERS: Emergency Provider Internal Medicine; PCP Family Medicine
DX: S61.011A Laceration without foreign body of right thumb without damage to nail, initial encounter (principal); W25.XXXA Contact with sharp glass, initial encounter; Y93.G1 Activity, food preparation and clean up; Y92.9 Unspecified place or not applicable; Y99.9 Unspecified external cause status
CPT/HCPCS: 12002; 99284

== ENCOUNTER 2025-01-26 15:40 | Outpatient (REF) | payer OTHER, SELFPAY ==
--- OUTSIDE RECORDS SUMMARY | 2025-01-26 15:43 | XMS_ITS | Clinical Summary ---
Author Organization [facility] Address [address] [place] [address] Care Team Providers Care Hotel Office Manager Name Role Phone Fatemeh Rios MD Primary Care Provider [phone] Surgical History Surgery Date Site/Laterality Comments OTHER SURGICAL HISTORY PROCEDURE: ---- OTHER ----; COMMENT: gastric sleeve OTHER SURGICAL HISTORY PROCEDURE: SKIN EXCISION Medical History Medical History Date Comments Herpes DX:Herpes Obesity DX:Obesity Social History Tobacco Use Types Packs/Day Years Used Date Smoking Tobacco: Never Smokeless Tobacco: Never Alcohol Use Standard Drinks/Week Comments Never 0 (1 standard drink = 0.6 oz pur e alcohol) Comments Unknown Sex and Gender Information Value Date Recorded Sex Assigned at Not on file Legal Sex Female 3:14 PM EST Gender Identity Not on file Sexual Orientation Not on file Obstetrics History Last Filed Vital Signs Vital Sign Reading Time Taken Comments Blood Pressure 116/76 07/12/2023 1:05 PM EDT Pulse 79 07/12/2023 1:05 PM EDT Temperature - - Respiratory Rate - - Oxygen Saturation - - Inhaled Oxygen Concentration - - Weight 74.8 kg (165 lb) 07/12/2023 1:05 PM EDT Height 157.5 cm (5' 2 ) 07/12/2023 1:05 PM EDT Body Mass Index 30.18 07/12/2023 1:05 PM EDT Plan of Treatment Health Maintenance Due Date Last Done Comments DTaP,Tdap,and Td Vaccines (1 - Tdap) 2016 Hepatitis B Vaccines (1 of 3 - 19+ 3-dose series) 2016 Cervical Cancer Screening: P ap Smear 2018 Depression Screening 08/20/2022 HIV Screening 08/20/2022 Hepatitis C Screening 08/20/2022 Social Influencers of Health Screening 08/20/2022 COVID-19 Vaccine ( - 2023-2 5 season) 2024 Influenza Vaccine (Season Ended) 2025 HIB Vaccines Aged Out No longer eligi ble based on patient's age to complete this topic HPV Vaccines Aged Out No longer eligi ble based on patient's age to complete this topic Hepatitis A Vaccines Aged Out No long er eligible based on patient's age to complete this topic IPV Vaccines Aged Out No longer eligi ble based on patient's age to complete this topic MMR Vaccines Aged Out No longer eligi ble based on patient's age to complete this topic Meningococcal ACWY Vaccine Aged Out N o longer eligible based on patient's age to complete this topic Meningococcal B Vaccine Aged Out No l onger eligible based on patient's age to complete this topic Pneumococcal Vaccine: Pediat rics (0 to 5 Years) and At-Risk Patients (6 to 64 Years) Aged Out No longer eligible b ased on patient's age to complete this topic RSV Immunization Patients Un rogers 20 months Aged Out No longer eligible b ased on patient's age to complete this topic Varicella Vaccines Aged Out No longer eligible based on patient's age to complete this topic Care Teams Hotel Office Manager Relationship Specialty Start Date End Date Fatemeh Rios MD [address] [place] [phone] PCP - General 07/29/21
--- OUTSIDE RECORDS SUMMARY | 2025-01-26 15:43 | XMS_ITS | Encounter Summary ---
Author Organization [employer] Address [address] [facility] [address] [place] [address] Care Team Providers Care Emissions Testing And Repair Technician Name Role Phone Fatemeh Rios MD Primary Care Provider [phone] Encounter Details Date Type Department Care Team (Late Contact Info) Description 06/08/[address] [facility] [address] [place] [address] Fatemeh Rios MD [address], [place] [phone] Hemorrhoids, unspecified hemorrhoid type (Primary Dx) Social History Tobacco Use Types Packs/Day Years Used Date Smoking Tobacco: Never Smokeless Tobacco: Never Alcohol Use Standard Drinks/Week Comments Not Currently 0 (1 standard drink = 0.6 oz pur e alcohol) Depression Answer Date Recorded Patient Health Questionnaire-2 Score 2 03/22/2023 Comments No Sex and Gender Information Value Date Recorded Sex Assigned at Female 07/10/2022 10:19 AM EDT Legal Sex Female 10:19 AM EDT Gender Identity Female 07/10/2022 10:19 AM EDT Sexual Orientation Straight 07/10/2022 10 :19 AM EDT documented as of this encounter Plan of Treatment Upcoming Encounters Date Type Department Care Team (Late st Contact Info) Description 02/23/2025 10:00 AM EDT Procedure Visit [facility] [address] [place] [address] Sandra Worthington CNM [address] [place] [address] documented as of this encounter Visit Diagnoses Diagnosis Hemorrhoids, unspecified hemorrhoid type- Primary documented in this encounter Care Teams Emissions Testing And Repair Technician Relationship Specialty Start Date End Date Fatemeh Rios MD [address] [place] [id number] PCP - General Family Medicine 06/12/17 documented as of this encounter
--- OUTSIDE RECORDS SUMMARY | 2025-01-26 15:43 | XMS_ITS | Encounter Summary ---
Author Organization [facility] Address [address] [facility] [address] [place] [address] Care Team Providers Care Head Of Precision Targeting Name Role Phone Fatemeh Rios MD Primary Care Provider [phone] Reason for Referral * Imaging (Routine) - Closed Specialty Diagnoses / Procedures Referred By Chris aguilar Referred To Contact Radiology Diagnoses Right inguinal pain Pelvic pain Procedures CT Abdomen Pelvis w/ Contrast Fatemeh Rios MD [address] [place] [address] Phone: tel: fax: [address] Phone: tel: fax: Referral ID Status Reason Start Date Expiration Date Visits Re quested Visits Authorized [id number] Closed 04/13/2023 04/12/2024 1 1 Encounter Details Date Type Department Care Team (Late st Contact Info) Description 04/13/2023 Orders Only [facility] [address] [place], [place] [phone] Fatemeh Rios MD [address] [place], [place] [phone] Right inguinal pain (Primary Dx); Pelvic pain Social History Tobacco Use Types Packs/Day Years [...] Description 02/23/2025 10:00 AM EDT Procedure Visit [facility] [address] [place] [address] Sandra Worthington CNM [address] [place] [address] Scheduled Orders Name Type Priority Associated Diagnoses Orde r Schedule CT Abdomen Pelvis w/ Contrast Imaging Routine Right inguinal pain Pelvic pain Expected: 04/13/2023, Expires: 04/13/2024 documented as of this encounter Visit Diagnoses Diagnosis Right inguinal pain- Primary Abdominal pain, right lower quadrant Pelvic pain documented in this encounter Care Teams Head Of Precision Targeting Relationship Specialty Start Date End Date Fatemeh Rios MD [address] [place] [address] PCP - General Family Medicine 06/12/17 documented as of this encounter
--- OUTSIDE RECORDS SUMMARY | 2025-01-26 15:43 | XMS_ITS | Encounter Summary ---
Author Organization [employer] Address [address] [facility] [address] [place] [address] Care Team Providers Care Leather Scrubber Name Role Phone Fatemeh Rios MD Primary Care Provider [phone] Encounter Details Date Type Department Care Team (Latest Contact Info) Description 01/26/2025 Travel Social History Tobacco Use Types Packs/Day Years Used Date Smoking Tobacco: Never Smokeless Tobacco: Never Alcohol Use Standard Drinks/Week Comments Not Currently 0 (1 standard drink = 0.6 oz pur e alcohol) Housing Stability Answer Date Recorded What is your housing situation today? I have frankie owen 01/19/[address] you li ve. Do you have problems with any of the following? None of the above 01/19/2025 Food Insecurity Answer Date Recorded Within the past 12 months, y ou worried that your food would run out before you got money to buy more: Never True 01/19/2025 Within the past 12 months,th e food you bought just didn't last and you didn't have enough money to get more: Never True 08/2025 Transportation Answer Date Recorded In the past 12 months, has l ack of transportation kept you from medical appts, meetings, work or from getting things needed for daily living? No 01/19/2025 Utilities Answer Date Recorded In the past 12 months, has t he electric, gas, oil or water company threatened to shut off services in your home? No 01/19/2025 Depression Answer Date Recorded Patient Health Questionnaire-2 Score 2 03/22/2023 Internet Access Answer Date Recorded Internet Access Q1 Yes 01/19/2025 Internet Access Q2 Not on file 01/19/2025 Comments No Sex and Gender Information Value [...] Procedure Visit [facility] [address] [place], [place] [phone] Sandra Worthington CNM [address] [place] [address] documented as of this encounter Visit Diagnoses Not on filedocumented in this encounter Care Teams Leather Scrubber Relationship Specialty Start Date End Date Fatemeh Rios MD [address] [place] [address] PCP - General Family Medicine 06/12/17 documented as of this encounter
--- OUTSIDE RECORDS SUMMARY | 2025-01-26 15:43 | XMS_ITS | Encounter Summary ---
Author Organization [facility] Address [address] [facility] [address] [place] [address] Care Team Providers Care Shrimp Cleaner Name Role Phone Fatemeh Rios MD Primary Care Provider [phone] Reason for Visit * Reason Onset Date Comments Chart Prep 01/23/2025 Encounter Details Date Type Department Care Team ([facility] Contact Info) Description 01/23/2025 Telephone [facility] [address] [place] [address] Fatemeh Rios MD [address] [place] [address] Chart Prep Social History Tobacco Use Types Packs/Day Years [...] AM EDT documented as of this encounter Miscellaneous Notes * Telephone Encounter - Monica Morin [place] - 01/23/2025 2:54 PM EDT Chart Prep Labs: not done ; contacted pt in regards to incomplete labs, pt can't come in today to get them done. Images: not applicable Vaccines due: Covid Due and Flu Due Referrals: Not Applicable Screenings: Not Applicable Overdue care gaps: Sbirt, PQ9, GAD7, and Disability documented in this encounter Plan of Treatment Upcoming Encounters Date Type Department Care Team (Late st Contact Info) Description 02/23/2025 10:00 AM EDT Procedure Visit [facility] [address] [place] [address] Sandra Worthington CNM [address] [place] [address] documented as of this encounter Visit Diagnoses Not on filedocumented in this encounter Care Teams Shrimp Cleaner Relationship Specialty Start Date End Date Fatemeh Rios MD [address] [place] [address] PCP - General Family Medicine 06/12/17 documented as of this encounter
--- OUTSIDE RECORDS SUMMARY | 2025-01-26 15:43 | XMS_ITS | Clinical Summary ---
Author Organization [employer] Address [address] [facility] [address] [place] [address] Care Team Providers Care Printing Press Machine Operator Name Role Phone Chuck Rios MD Primary Care Provider [phone] Allergies Active Allergy Reactions Criticality Noted Date Comments Squid Oil 09/25/2019 Medications valACYclovir (Valtrex) 500 MG tablet TAKE 1 TABLET BY MOUTH EVERY DAY 30 tablet 2 01/17/20 25 Active amphetamine-de xtroamphetamin e XR (Adderall XR) 20 MG 24 hr capsule Take 1 capsule (20 mg) by mouth Once per day. Do not crush or chew. 30 capsule 01/27/20 25 025 Active valACYclovir (Valtrex) 500 MG tablet Take 1 tablet (500 mg) by mouth Once per day. 30 tablet 2 02/19/20 24 025 Discontinued amphetamine-de xtroamphetamin e XR (Adderall XR) 20 MG 24 hr capsule Take 1 capsule (20 mg) by mouth Once per day. Do not crush or chew. 30 capsule 12/25/19 25 025 Discontinued(Re order (will not trigger notification to Pharmacy)) Active Problems Problem Noted Date Diagnosed Date Anal fissure 06/02/2024 Intestinal malabsorption following gastrectomy 0 06/02/2024 Intestinal malabsorption 06/02/2024 Laceration of thumb 06/02/2024 Hemorrhoids with complication 06/02/2024 Obesity 06/02/2024 Elevated BP without diagnosis of hypertension Assessment & Plan (02/25/2024 10:11 AM EDT): -Goal BP < 140/90 per JNC-8 and < 130/80 per ACC/AHA guideline (Treatment threshold >=140/90) -Continue working on lifestyle modifications -Recommended self-monitoring BP. -Continue current medications: -Treatment Hx: hydrochlorothiazide, but BP had normalized after bariatric surgery -Follow up in 3-6 mo, sooner if any problem arises Hemorrhoids 08/16/2023 Assessment & Plan (08/17/2023 4:16 PM EST): - s/p hemorrhoidectomy on 07/20/[address] Santana - avoid sedentary lifestyle - prevent constipation Mood disorder 2023 Assessment & Plan (01/26/2025 1:53 PM EDT): - Previous BHS: RVCC - Pt is also diagnosed with ADHD - Pt has tried multiple different medications: methylphenidate; amphetamine; clonidine; bupropion; escitalopram; lamotrigine - Pt was taking fluoxetine and guanfacine when she was being discharged from [facility] fluoxetine - Obtain medical record from [facility] for correct diagnosis - Refer to [facility] for diagnosis and treatment recommendation Assessment & Plan (02/20/2024 4:37 PM EDT): - Previous BHS: RVCC - Pt is also diagnosed with ADHD - Pt has tried multiple different medications: methylphenidate; amphetamine; clonidine; bupropion; escitalopram; lamotrigine - Pt was taking fluoxetine and guanfacine when she was being discharged from [facility] - Continue fluoxetine - Obtain medical record from [facility] for correct diagnosis - Refer to [facility] for diagnosis and treatment recommendation Assessment & Plan (08/16/2023 6:28 PM EST): - Previous BHS: RVCC - Pt is also diagnosed with ADHD - Pt has tried multiple different medications: methylphenidate; amphetamine; clonidine; bupropion; escitalopram; lamotrigine - Pt was taking fluoxetine and guanfacine when she was being discharged from [facility] - Continue fluoxetine - Obtain medical record from [facility] for correct diagnosis - Refer to [facility] for diagnosis and treatment recommendation Assessment & Plan (2023 5:01 PM EDT): - Previous BHS: RVCC - Pt has tried multiple different medications: methylphenidate; amphetamine; clonidine; bupropion; escitalopram; lamotrigine - Pt was taking: Fluoxetine and Guanfacine, before she was being discharged from [facility] - PCP will continue prescribing Fluoxetine and Guanfacine - Pt no longer receiving counseling services - She was able to contract her safety today Overweight 03/22/2023 Assessment & Plan (08/17/2023 4:17 PM EST): - s/p sleeve gastrectomy in 2017 and revision in 2022 - continue working on lifestyle modifications History of hypertension 03/22/2023 Assessment & Plan (02/20/2024 4:37 PM EDT): -Goal BP < 140/90 per JNC-8 and < 130/80 per ACC/AHA guideline (Treatment threshold >= 140/90) -BP within acceptable range today -Continue working on lifestyle modifications -Continue self-monitoring BP. -Treatment Hx: Previously on Hydrochlorothiazide but medication was discontiued after surgery -Follow up in 6 mo, sooner if any problem arises Assessment & Plan (08/16/2023 6:42 PM EST): -Goal BP < 140/90 per JNC-8 and < 130/80 per ACC/AHA guideline (Treatment threshold >= 140/90) -BP within acceptable range today -Continue working on lifestyle modifications -Continue self-monitoring BP. -Treatment Hx: Previously on Hydrochlorothiazide but medication was discontiued after surgery -Follow up in 6 mo, sooner if any problem arises Assessment & Plan (2023 4:59 PM EDT): -Goal BP < 140/90 per JNC-8 and < 130/80 per ACC/AHA guideline (Treatment threshold >= 140/90) -BP within acceptable range today -Continue working on lifestyle modifications -Recommended self-monitoring BP. -Continue current medications: -Treatment Hx: Previously on Hydrochlorothiazide but medication was discontiued after surgery -Follow up in 3-6 mo, sooner if any problem arises History of cholecystectomy 03/22/2023 Assessment & Plan (2023 4:59 PM EDT): - no post-cholecystectomy diarrhea History of pancreatitis 03/22/2023 Assessment & Plan (2023 4:58 PM EDT): Hospitalized in 07/2022, resolved with supportive care ADHD 03/22/2023 Assessment & Plan (01/26/2025 1:52 PM EDT): - Previous BHS: RVCC, pt self-discontinued counseling service. - Pt has tried multiple different medications: methylphenidate; amphetamine; clonidine; bupropion; escitalopram; lamotrigine, and guanfacine -dextroamphetamine-amphetamine was the most effective medication per pt -will prescribe Adderall -pt agreed to be evaluated by [facility] for correct diagnosis and appropriate medication. -pt signed medical release so that we can obtain record from [facility] Assessment & Plan (02/20/2024 4:37 PM EDT): - Previous BHS: CC, pt self-discontinued counseling service. - Pt has tried multiple different medications: methylphenidate; amphetamine; clonidine; bupropion; escitalopram; lamotrigine, and guanfacine -dextroamphetamine-amphetamine was the most effective medication per pt -will prescribe Adderall -pt agreed to be evaluated by [facility] for correct diagnosis and appropriate medication. -pt signed medical release so that we can obtain record from [facility] Assessment & Plan (08/16/2023 6:25 PM EST): - Previous BHS: CC, pt self-discontinued counseling service. - Pt has tried multiple different medications: methylphenidate; amphetamine; clonidine; bupropion; escitalopram; lamotrigine, and guanfacine -dextroamphetamine-amphetamine was the most effective medication per pt -will prescribe Adderall -pt agreed to be evaluated by [facility] for correct diagnosis and appropriate medication. -pt signed medical release so that we can obtain record from [facility] Assessment & Plan (2023 5:01 PM EDT): - Previous BHS: RVCC - Pt has tried multiple different medications: methylphenidate; amphetamine; clonidine; bupropion; escitalopram; lamotrigine - Pt was taking: Fluoxetine and Guanfacine, before she was being discharged from [facility] - PCP will continue prescribing Fluoxetine and Guanfacine - Pt no longer receiving counseling services - She was able to contract her safety today S/P laparoscopic sleeve gastrectomy 03/22/2023 Assessment & Plan (01/26/2025 1:52 PM EDT): -hx of sleeve gastrectomy in 2018 at [facility] -she has regained weight and developed some complications -pt started a new weight management clinic, at [facility], seen by bariatric surgeon on december 01, 2021 - s/p Revision of Gastrectomy in October 2022 Assessment & Plan (01/26/2025 6:10 AM EDT): >>ASSESSMENT AND PLAN FOR HISTORY OF SLEEVE GASTRECTOMY WRITTEN ON 03/22/2023 12:39 PM BY HÉCTOR SETHI -hx of sleeve gastrectomy in 2018 -she has regained weight and developed some complications -pt started a new weight management clinic, at [facility], seen by bariatric surgeon on december 01, 2021 - s/p Revision of Gastrectomy in October 2022 Assessment & Plan (01/26/2025 6:10 AM EDT): >>ASSESSMENT AND PLAN FOR HISTORY OF SLEEVE GASTRECTOMY WRITTEN ON 08/16/2023 6:41 PM BY CHUCK RIOS MD -hx of sleeve gastrectomy in 2018 at [facility] -she has regained weight and developed some complications -pt started a new weight management clinic, at [facility], seen by bariatric surgeon on december 01, 2021 - s/p Revision of Gastrectomy in October 2022 Assessment & Plan (01/26/2025 6:10 AM EDT): >>ASSESSMENT AND PLAN FOR HISTORY OF SLEEVE GASTRECTOMY WRITTEN ON 02/20/2024 4:37 PM BY ALBERT MTZ -hx of sleeve gastrectomy in 2018 at [facility] -she has regained weight and developed some complications -pt started a new weight management clinic, at [facility], seen by bariatric surgeon on december 01, 2021 - s/p Revision of Gastrectomy in October 2022 Recurrent herpes labialis 08/08/2012 Assessment & Plan (08/16/2023 6:29 PM EST): - continue episodic use of valacyclovir Resolved Problems Problem Noted Date Diagnosed Date Resolved Date BMI 31.0-31.9,adult 06/02/2024 01/27/20 25 BMI 32.0-32.9,adult 06/02/2024 01/27/20 25 BMI 37.0-37.9, adult 06/02/2024 025 Obesity 08/16/2023 08/16/2023 Encounters Date Type Department Care Team Description 01/26/2025 2:30 PM EDT Office Visit [facility] [address] [place] [phone] Chuck Rios MD History of sleeve gastrectomy (Primary Dx); S/P laparoscopic sleeve gastrectomy; Attention deficit hyperactivity disorder (ADHD), predominantly inattentive type; Mood disorder (CMS/HCC); Left upper quadrant pain; Encounter for immunization 01/26/2025 Travel 01/26/2025 Refill [facility] [address] [place] [address] Lyndsey Mccormack MD 01/23/2025 Telephone [facility] [address] [place] [phone] Chuck Rios MD Chart Prep 01/19/2025 Patient Outreach [facility] [address] [place] [address] Chuck Rios MD Pre-visit Planning (SDOH negative, Tobacco screening negative. ) 01/16/2025 Refill [facility] [address] [place] [address] Chuck Rios MD 12/23/2024 Refill [facility] [address] [place] [address] Chuck Rios MD 11/11/2024 Refill [facility] [address] [place] [address] Chuck Rios MD from Last 3 Months Immunizations Immunization Administration Dates Next Due DTP 01/27/2001, 0,04/06/1999,10/11,1997 HPV, Quadrivalent 02/02/2010,10/07/2009,08/04/20 09 Hep A, ped/adol, 2 dose 10/03/2013,12/31/2009 Hep B, Adolescent or Pediatric 1997,1996,1997 Hep B, adult 10/22/2020,08/27/2020,07/23/2020 Hib (HbOC) 04/06/1999, 8,1997,05/22 IPV 04/29/2001, 9,1997,05/22 Influenza injectable quadriv alent IIV4 with preservative 05/22/2018 Influenza injectable quadriv alent preservative free 07/23/2020,07/16/2019,10/08/2014 Influenza, IIV3, injectable 08/08/2011 Influenza, Split (incl. marii fied surface antigen) 10/03/2013 Influenza, live, intranasal 08/08/2012 MMR 04/29/2001,02/08/1998 Meningococcal MCV4P ACYW-135 10/08/2014,08/04/20 09 Moderna Covid-19 Vaccine 12+ 05/02/2021,04/04/20 21 Pfizer Covid-19 Vaccine 12+ 01/26/2025 TD (adult), 2 Lf tetanus tox oid, preservative free, adsorbed 07/23/2020 Tdap 04/10/2016,08/04/2009 Varicella 08/08/2012,11/09/2011 Family History Medical History Relation Name Comments Liver cancer Maternal Great-Grandmother Relation Name Status Comments Maternal Great-Grandmother Alive Social History Tobacco Use Types Packs/Day Years Used Date Smoking Tobacco: Never Smokeless Tobacco: Never Tobacco Cessation:Counseling Given: Not Answered Alcohol Use Standard Drinks/Week Comments Not Currently [...] Orientation Straight 07/10/2022 10 :19 AM EDT Last Filed Vital Signs Vital Sign Reading Time Taken Comments Blood Pressure 130/84 01/26/2025 2:28 PM EDT Pulse 60 01/26/2025 2:28 PM EDT Temperature 36.8 ??C (98.3 ??F) 01/26/2025 2:28 PM ED T Respiratory Rate 16 01/26/2025 2:28 PM EDT Oxygen Saturation 99% 02/25/2024 11:35 AM EDT Inhaled Oxygen Concentration - - Weight 66 kg (145 lb 6.4 oz) 01/26/2025 2:28 PM EDT Height 160 cm (5' 3 ) 01/26/2025 2:28 PM EDT Body Mass Index 25.76 01/26/2025 2:28 PM EDT Plan of Treatment Upcoming Encounters Date Type Department Care Team (Late st Contact Info) Description 02/23/2025 10:00 AM EDT Procedure Visit [facility] [address] [place] [address] WesleypaulSandra sue, CNM [address] [place] [address] Health Maintenance Due Date Last Done Comments Disability Screening 1997 Depression Screening 03/22/2024 03/22/2023, 03/22/20 23 Influenza Vaccine (#1) 2024 , 07/16/2019, 05/22/2018, Additional history exists Family Planning (PISQ) 02/24/2025 02/25/2024 SDOH Screening 01/19/2026 01/19/2025 Alcohol/Substance Use Screening 01/26/2026 01/26/2025 Tobacco Screening 01/26/2026 01/26/2025 Pap Smear 02/22/2026 02/22/2023 Lipid Panel 03/22/2028 03/22/2023 DTaP/Tdap/Td Vaccines (8 - Td or Tdap) 07/23/2030 07/23/2020, 04/10/2016, 08/04/2009, Additional history exists Zoster Vaccines (1 of 2) 2047 RSV Patients and Patients Aged 60 years or older (1 - 1-dose 75+ series) 2072 HIB Vaccines Completed 04/06/1999, 09/1997, 1997, Additional history exists IPV Vaccines Completed 04/29/2001, 03/11, 1997, Additional history exists HPV Vaccines Completed 02/02/2010, 09/11, 08/04/2009 Hepatitis A Vaccines Completed 10/03/2013, 01/01/20 10 Meningococcal Vaccine Completed 10/08/2014, 009 Hepatitis B Vaccines Completed 10/22/2020, 08/27/2020, 07/23/2020, Additional history exists HIV Screening Completed 03/22/2023 Hepatitis C Screening Completed 03/22/2023, 020 COVID-19 Vaccine Completed 01/26/2025, , 04/04/2021 Meningococcal B Vaccine Aged Out No l onger eligible based on patient's age to complete this topic Pneumococcal Vaccine: Pediatrics (0 to 5 Years) and At-Risk Patients (6 to 49) Years) Aged Out No longer eligible based on patient's age to complete this topic RSV under 20 months Aged Out No longe r eligible based on patient's age to complete this topic Rotavirus Vaccines Aged Out No longer eligible based on patient's age to complete this topic Procedures Procedure Name Priority Date/Time Associated Diagnosis Comments HEPATITIS C ANTIBODY REFLEX Routine 03/22/2023 12:03 PM EDT HIV ANTIBODY/ANTIGEN ([place] DPH) Routine 03/22/2023 12:03 PM EDT LIPID PANEL, STANDARD Routine 03/22/2023 12:03 PM EDT IMAGE-GUIDED PAP W/AGE BASED SCR,W/CT/NG/TRICH Routine 02/22/2023 11:58 AM EDT Cervical cancer screening Encntr screen for infections w sexl mode of transmiss from Last 3 Months or Most Recently Relevant to Health Maintenance Results * Hepatitis C Antibody Reflex (03/22/2023 12:03 PM EDT) Hepatitis C Antibody Nonreactive Nonreactive [facility] Comment:Antibodies to HCV no t detected; does not exclude early acuteHCV infection. 03/22/2023 12:0 3 PM EDT 03/22/2023 1:18 PM EDT [facility] External Provider LAB BLO OD ORDERABLES Final Result [facility] [address] [place] [address] [phone] * HIV Ab/Ag ([place] DPH) (03/22/2023 12:03 PM EDT) HIV AB/AG Nonreactive Nonreactive [facility] Comment:HIV-1 p24 Ag and/or HIV-1/HIV-2 Ab not detected.A test result that is nonreactive does not exclude thepossibility of exposure to or infection with HIV-1 and/orHIV-2. Nonreactive results in this assay for individualswith prior exposure to HIV-1 and/or HIV-2 may be due toantigen and antibody levels that are below the limit ofdetection of this assay.The [employer] Regulated Program Manager HIV Ag/Ab Combo assay result andsupplemental assay results should be interpreted inconjunction with the patient's clinical presentation,history and other laboratory results. If the results areinconsistent with clinical evidence, additional testing issuggested to confirm the result. 03/22/2023 12:0 3 PM EDT 03/22/2023 1:18 PM EDT us [facility] External Provider LAB BLO OD ORDERABLES Final Result [facility] [address] [place] [phone] * Lipid Panel, Standard (03/22/2023 12:03 PM EDT) Triglycerides 99 mg/dL [facility] Comment:Desirable Triglyceri de: less than 150 mg/dLBorderline High Triglyceride 150-199 mg/dLHigh Triglyceride: 200-499 mg/dLVery High Triglyceride: greater than or equal to 5OO mg/dL Cholesterol 177 mg/dL [facility] Comment:Desirable Cholestero l: less than 200 mg/dLBorderline High Cholesterol: 200-239 mg/dLHigh Cholesterol: greater than 239 mg/dL LDL Cholesterol Calculated 107 mg/dl [facility] Comment:Desirable LDL: less than 100 mg/dLNear Optimal/Above Optimal LDL: 110- 129 mg/dLBorderline High LDL: 130-159 mg/dLHigh LDL: 160-189 mg/dLVery High LDL: greater than or equal to 190 mg/dL HDL Cholesterol 51 mg/dL [facility] Comment:Desirable HDL: great er than 40 mg/dL Note: This HDL assay may give artificially low results in patients with liver disease. 03/22/2023 12:0 3 PM EDT 03/22/2023 1:18 PM EDT [facility] External Provider LAB BLO OD ORDERABLES Final Result [facility] [address] [place] [address] [phone] * Image-Guided Pap with Age-Based Screening??with CT/NG,??Trichomonas (02/22/2023 11:58 AM EDT) Comment [employer] Comment: This order for age-based cervical cancer and STI screening follows ACOG guidelines(PB 168, 140, RMU284). See individual assays for performing site location. Clinical Information: None given [employer] [facility] LMP: NONE GIVEN [employer] [facility] Prev. PAP: NONE GIVEN [facility] Prev. BX: NONE GIVEN [facility] SOURCE: None given [facility] Statement Of Adequacy: [employer] Comment: Satisfactory for evaluation. Endocervical/transformation zone component present. Interpretation/Re sult: Negative for intraepithelial lesion or malignancy. [facility] Infection Shift in vaginal rody suggestive of bacterial vaginosis. [facility] COMMENT: This Pap test has been evaluated with computer assisted technology. [employer] Information Systems Technician: Rajinder Soraat Comment: KF, CT(ASCP) CT screening location: [address] ??[phone] Review Information Systems Technician: [employer] Comment: CMG, CT(ASCP) CT screening location: [address] ??[phone] (Always Message) [employer] Comment: EXPLANATORY NOTE: The Pap is a screening test for cervical cancer. It is not a diagnostic test and is subject to false negative and false positive results. It is most reliable when a satisfactory sample, regularly obtained, is submitted with relevant clinical findings and history, and when the Pap result is evaluated along with historic and current clinical information. Chlamydia trachomatis RNA, TMA, Urogenital NOT DETECTED NOT DETECTED [facility] Neisseria gonorrhoeae RNA, TMA, Urogenital NOT DETECTED NOT DETECTED [facility] [place] [facility] (Always Message) [facility] [place] [facility] Comment: The analytical performance characteristics of this assay, when used to test SurePath(TM) specimens have been determined by [facility]. The modifications have not been cleared or approved by the FDA. This assay has been validated pursuant to the CLIA regulations and is used for clinical purposes. For additional information, please refer to https://[employer]/faq/PYZ172 (This link is being provided for information/ educational purposes only.) Trichomonas vaginalis, QL, TMA, PAP Vial NOT DETECTED NOT DETECTED [employer] Comment: The analytical performance characteristics of this assay have been determined by [facility]. The modifications have not been cleared or approved by the FDA. This assay has been validated pursuant to the CLIA regulations and is used for clinical purposes. For additional information, please refer to http://S[employer]ist.[employer]/ faq/Trichomonastma (This link is being provided for information/ educational purposes only.) Pap Vial 02/22/2023 11:5 8 AM EDT 02/23/2023 2:33 AM EDT Sandra [facility] ORDERABLES F inal Result [facility] [address], [place] [address] [facility] [place] [facility] [address] [place] [phone] from Last 3 Months or Most Recently Relevant to Health Maintenance Insurance [employer] Care Teams Printing Press Machine Operator Relationship Specialty Start Date End Date Chuck Rios MD [address] [place] [phone] PCP - General Family Medicine 06/12/17
--- OUTSIDE RECORDS SUMMARY | 2025-01-26 15:43 | XMS_ITS | Encounter Summary ---
Author Organization [employer] Address [address] [facility] [address] [place] [address] Care Team Providers Care Crepe Machine Operator Name Role Phone Fatemeh Rios MD Primary Care Provider [phone] Reason for Visit * Reason Onset Date Comments Med Refill 01/26/2025 Encounter Details Date Type Department Care Team ([facility] st Contact Info) Description 01/26/2025 Refill [facility] [address] [place] [address] Lyndsey Mccormack MD [address] [place] [address] Social History Tobacco Use Types Packs/Day Years Used Date Smoking Tobacco: Never Smokeless Tobacco: Never Alcohol Use Standard Drinks/Week Comments Not Currently 0 (1 standard drink = 0.6 oz pur e alcohol) Housing Stability Answer Date Recorded What is your housing situation today? I have frankie lexie 01/19/[address] you li [...] t he electric, gas, oil or water [employer] threatened to shut off services in your [...] Description 02/23/2025 10:00 AM EDT Procedure Visit [facility] [address] [place] [address] Sandra Worthington CNM [address] [place] [address] documented as of this encounter Visit Diagnoses Not on filedocumented in this encounter Care Teams Crepe Machine Operator Relationship Specialty Start Date End Date Fatemeh Rios MD [address] [place] [address] PCP - General Family Medicine 06/12/17 documented as of this encounter
--- OUTSIDE RECORDS SUMMARY | 2025-01-26 15:43 | XMS_ITS | Encounter Summary ---
Author Organization [employer] Address [address] [facility] [address] [place] [address] Care Team Providers Care Supervisor Ordnance Truck Installation Name Role Phone Fatemeh Rios MD Primary Care Provider [phone] Encounter Details Date Type Department Care Team (Latest Contact Info) Description 03/21/2021 Abstract [facility] CONVERSIONS Dental, Provider, DDS Social History Tobacco Use Types Packs/Day Years Used Date Smoking Tobacco: Never Assessed Comments Unknown Sex and Gender Information Value [...] Description 02/23/2025 10:00 AM EDT Procedure Visit [facility] [address] [place] [address] Sandra Worthington CNM [address] [place] [address] documented as of this encounter Visit Diagnoses Not on filedocumented in this encounter Care Teams Supervisor Ordnance Truck Installation Relationship Specialty Start Date End Date Fatemeh Rios MD [address] [place] [address] PCP - General Family Medicine 06/12/17 documented as of this encounter
--- OUTSIDE RECORDS SUMMARY | 2025-01-26 15:43 | XMS_ITS | Encounter Summary ---
Author Organization [employer] Address 75 [facility] 7t [place] [address] Care Team Providers Care Vamp Creaser Name Role Phone Fatemeh Rios MD Primary Care Provider [phone] Reason for Visit * Reason Onset Date Comments Medication Question 05/30/2023 Encounter Details Date Type Department Care Team ([facility] Contact Info) Description 05/30/2023 Telephone [facility] [address] [place] [address] Fatemeh Rios MD [address] [place] [address] Medication Question Social History Tobacco Use Types Packs/Day Years [...] encounter Miscellaneous Notes * Telephone Encounter - Sarah Snyder - 05/30/2023 9:01 AM EDT Tc from pt requesting a script for Adderall. Rojas she was receiving the medication through [facility] but is no longer attending there. Please contact pt at [phone] documented in this encounter Plan of Treatment Upcoming Encounters Date Type Department Care Team (Late st Contact Info) Description 02/23/2025 10:00 AM EDT Procedure Visit [facility] [address], [place] [phone] Sandra Worthington CNM [address], [place] [phone] documented as of this encounter Visit Diagnoses Not on filedocumented in this encounter Care Teams Vamp Creaser Relationship Specialty Start Date End Date Fatemeh Rios MD [address] [place], [place] [phone] PCP - General Family Medicine 06/12/17 documented as of this encounter
--- OUTSIDE RECORDS SUMMARY | 2025-01-26 15:43 | XMS_ITS | Encounter Summary ---
Author Organization [employer] Address 75 [facility] 7t [place] [address] Care Team Providers Care Unit Clerk Name Role Phone Fatemeh Rios MD Primary Care Provider [phone] Encounter Details Date Type Department Care Team (Late Contact Info) Description 06/01/2023 Orders Only [facility] MED[facility]INE [address] [place] [address] Fatemeh Rios MD [address] [place], [place] [phone] Attention deficit hyperactivity disorder (ADHD), predominantly inattentive type (Primary Dx); Mood disorder (CMS/HCC) Social History Tobacco Use Types Packs/Day Years [...] Encounters Date Type Department Care Team (Late Contact Info) Description 02/23/2025 10:00 AM EDT Procedure Visit [facility] [address] [place] [address] Sandra Worthington CNM [address] [place], [place] [phone] documented as of this encounter Visit Diagnoses Diagnosis Attention deficit hyperactivity disorder (ADHD), predominantly inattentive type- Primary Mood disorder (CMS/HCC) Unspecified episodic mood disorder documented in this encounter Care Teams Unit Clerk Relationship Specialty Start Date End Date Fatemeh Rios MD [address] [place] [address] PCP - General Family Medicine 06/12/17 documented as of this encounter
--- OUTSIDE RECORDS SUMMARY | 2025-01-26 15:43 | XMS_ITS | Encounter Summary ---
Author Organization [employer] Address 75 [facility] 7t [place] [address] Care Team Providers Care Assembler And Tester Electronics Name Role Phone Fatemeh Rios MD Primary Care Provider [phone] Encounter Details Date Type Department Care Team (Latest Contact Info) Description 09/20/2018 Abstract [facility] CONVERSIONS Dental, Provider, DDS Social History Tobacco [...] Description 02/23/2025 10:00 AM EDT Procedure Visit [facility] MED[facility]INE [address] [place] [address] Sandra Worthington CNM [address] [place] [address] documented as of this encounter Visit Diagnoses Not on filedocumented in this encounter Care Teams Assembler And Tester Electronics Relationship Specialty Start Date End Date Fatemeh Rios MD [address] [place] [address] PCP - General Family Medicine 06/12/17 documented as of this encounter
--- OUTSIDE RECORDS SUMMARY | 2025-01-26 15:43 | XMS_ITS | Encounter Summary ---
Author Organization [employer] Address 75 [facility] 7t [place] [address] Care Team Providers Care Forming Mill Operator Name Role Phone Fatemeh Rios MD Primary Care Provider [phone] Encounter Details Date Type Department Care Team (Latest Contact Info) Description 01/26/2025 2:30 PM EDT Office Visit [facility] [address] [place] [address] Fatemeh Rios MD [address] [place] [address] History of sleeve gastrectomy (Primary Dx); S/P laparoscopic sleeve gastrectomy; Attention deficit hyperactivity disorder (ADHD), predominantly inattentive type; Mood disorder (CMS/HCC); Left upper quadrant pain; Encounter for immunization Social History Tobacco Use Types Packs/Day Years [...] AM EDT documented as of this encounter Last Filed Vital Signs Vital Sign Reading Time Taken Comments Blood Pressure 130/84 01/26/2025 2:28 PM EDT Pulse 60 01/26/2025 2:28 PM EDT Temperature 36.8 ??C (98.3 ??F) 01/26/2025 2:28 PM ED T Respiratory Rate 16 01/26/2025 2:28 PM EDT Oxygen Saturation - - Inhaled Oxygen Concentration - - Weight 66 kg (145 lb 6.4 oz) 01/26/2025 2:28 PM EDT Height 160 cm (5' 3 ) 01/26/2025 2:28 PM EDT Body Mass Index 25.76 01/26/2025 2:28 PM EDT documented in this encounter Miscellaneous Notes * Assessment & Plan Note - Ivon Rios MA - 01/26/2025 1:53 PM EDTAssociated Problem(s): Mood disorder (CMS/[facility]) - Previous [facility]: [facility] - Pt is also diagnosed with ADHD - Pt has tried multiple different medications: methylphenidate; amphetamine; clonidine; bupropion; escitalopram; lamotrigine - Pt was taking fluoxetine and guanfacine when she was being discharged from [facility] - Continue fluoxetine - Obtain medical record from [facility] for correct diagnosis - Refer to [facility] for diagnosis and treatment recommendation * Assessment & Plan Note - Ivon Rios MA - 01/26/2025 1:52 PM EDTAssociated Problem(s): ADHD - Previous [facility]: [facility], pt self-discontinued counseling service. - Pt has tried multiple different medications: methylphenidate; amphetamine; clonidine; bupropion; escitalopram; lamotrigine, and guanfacine -dextroamphetamine-amphetamine was the most effective medication per pt -will prescribe Adderall -pt agreed to be evaluated by [facility] for correct diagnosis and appropriate medication. -pt signed medical release so that we can obtain record from [facility] * Assessment & Plan Note - Ivon Rios MA - 01/26/2025 1:52 PM EDTAssociated Problem(s): S/P laparoscopic sleeve gastrectomy -h[place] of sleeve gast[place] in 2018 at [facility] -she has regained weight and developed some complications -pt started a new weight management clinic, at [facility], seen by bariatric surgeon on december 01, 2021 - s/p Revision of Gastrectomy in October 2022 documented in this encounter Plan of Treatment Upcoming Encounters Date Type Department Care Team (Late st Contact Info) Description 02/23/2025 10:00 AM EDT Procedure Visit [facility] MEDICINE [address] [place] [address] Sandra Worthington CNM [address] [place] [address] Scheduled Orders Name Type Priority Associated Diagnoses Orde r Schedule Lipase Lab Routine Left upper quadrant pain Expected: 01/26/2025, Expires: 01/26/2026 documented as of this encounter Visit Diagnoses Diagnosis History of sleeve gastrectomy- Primary S/P laparoscopic sleeve gastrectomy Attention deficit hyperactivity disorder (ADHD), predominantly inattentive type Mood disorder (CMS/HCC) Unspecified episodic mood disorder Left upper quadrant pain Abdominal pain, left upper quadrant Encounter for immunization documented in this encounter Care Teams Forming Mill Operator Relationship Specialty Start Date End Date Fatemeh Rios MD [address] [place] [address] PCP - General Family Medicine 06/12/17 documented as of this encounter
[2025-01-26 16:22] LABS: Estimated Average Glucose 94 mg/dL; Hemoglobin A1C 105.9708 umol/L; Hemoglobin A1c % 4.9 % (<6.0); Total Hemoglobin (HGBA1C) 3530.9446 umol/L
[2025-01-26 17:11] LABS: Alanine Aminotransferase 29 U/L (0-31); Albumin Level 4.5 g/dL (3.5-5.0); Alkaline Phosphatase 129 U/L (39-117); Anion Gap 13 (12-20); Aspartate Amino Transferase 30 U/L (5-31); Bilirubin Total 0.4 mg/dL (0.0-1.0); Blood Urea Nitrogen 6 mg/dL (9-16); Calcium 9.4 mg/dL (8.4-10.2); Carbon Dioxide 25 mmol/L (22-29); Chloride 105 mmol/L (96-108); Cholesterol 159 mg/dL (<200); Estimated Glomerular Filt Rate > 60; Glucose Random 96 mg/dL (60-115); HDL Cholesterol 60 mg/dL (>40); LDL Cholesterol Calculated 84 mg/dL (<100); Lipase 53 U/L (8-78); Sodium 139 mmol/L (135-145); Total Protein 7.4 g/dL (6.5-8.0); Triglycerides 75 mg/dL (<150)
[2025-01-26 17:12] LABS: TSH reflex Free T4 0.69 uIU/mL (0.32-4.0)
[2025-01-26 19:08] LABS: Reflex LDLD? No
== END 2025-01-26 15:41 | disposition home or self-care (01) ==
LOC: HO.HHCL 15:40
PROVIDERS: Visit Provider Family Medicine
DX: Z13.1 Encounter for screening for diabetes mellitus (principal); Z13.6 Encounter for screening for cardiovascular disorders; R10.12 Left upper quadrant pain; R03.0 Elevated blood-pressure reading, without diagnosis of hypertension
CPT/HCPCS: 36415; 80053; 80061; 83036; 83690; 84443

== ENCOUNTER 2025-02-23 16:10 | Outpatient (REF) | payer OTHER, SELFPAY ==
--- OUTSIDE RECORDS SUMMARY | 2025-02-23 17:49 | XMS_ITS | Encounter Summary ---
Author Organization [employer] Address [address] [facility] [address]t [place] [address] Care Team Providers Care Tail Puller Name Role Phone Fatemeh Rios MD Primary Care Provider [phone] Reason for Visit * Reason Onset Date Comments Med Refill 01/26/2025 Encounter Details Date Type Department Care Team ([facility] st Contact Info) Description 01/26/2025 Refill [facility] MED & PEDS [address] [place] [address] Lyndsey Mccormack MD [address] [place] [address] Social History Tobacco Use Types Packs/Day Years Used Date Smoking Tobacco: Never Smokeless Tobacco: Never Alcohol Use Standard Drinks/Week Comments Not Currently 0 (1 standard drink = 0.6 oz pur e alcohol) Depression Answer Date Recorded Patient Health Questionnaire-9 Score 9 01/29/2025 Patient Health Questionnaire-9 Score 9 01/29/2025 Last PHQ-9: Questionnaire Data Not on file 0 01/29/2025 Housing Stability Answer Date Recorded What is [...] Answer Date Recorded Patient Health Questionnaire-2 Score 3 01/29/2025 Internet Access Answer Date Recorded Internet Access Q1 Yes 01/19/2025 Internet Access Q2 Not on file 01/19/2025 Comments No Sex and Gender Information Value Date Recorded Sex Assigned at Female 07/10/2022 10:19 AM EDT Legal Sex Female 10:19 AM EDT Gender Identity Female 07/10/2022 10:19 AM EDT Sexual Orientation Straight 07/10/2022 10 :19 AM EDT documented as of this encounter Functional Status * Over the past 2 weeks, how often have you been bothered by any of the following problems? Question Answer Date of Assessment Author Patient Health Questionnaire -2 Score 3 01/29/2025 3:56 PM EDT Margaret Snyder MA * Little interest or pleasure in doing things Answer Date of Assessment Author More than half the days 01/29/2025 3:56 PM EDT Farnaz Waterman MA * Feeling down, depressed, or hopeless Answer Date of Assessment Author Several days 01/29/2025 3:56 PM EDT Farnaz Snyder MA * Trouble falling or staying asleep, or sleeping too much Answer Date of Assessment Author Several days 01/29/2025 3:56 PM EDT Farnaz Snyder MA * Feeling tired or having little energy Answer Date of Assessment Author Several days 01/29/2025 3:56 PM EDT Farnaz Snyder MA * Poor appetite or overeating Answer Date of Assessment Author More than half the days 01/29/2025 3:56 PM EDT Farnaz Waterman MA * Feeling bad about yourself - or that you are a failure or have let yourself or your family down Answer Date of Assessment Author Several days 01/29/2025 3:56 PM EDT Farnaz Snyder MA * Trouble concentrating on things, such as reading the newspaper or watching television Answer Date of Assessment Author Several days 01/29/2025 3:56 PM EDT Farnaz Snyder MA * Moving or speaking so slowly that other people could have noticed? Or the opposite - being so fidgety or restless that you have been moving around a lot more than usual. Answer Date of Assessment Author Not at all 01/29/2025 3:56 PM EDT Farnaz Snyder MA * Thoughts that you would be better off or hurting yourself in some way Answer Date of Assessment Author Not at all 01/29/2025 3:56 PM EDT Farnaz Snyder MA * Patient Health Questionnaire-9 Score Answer Date of Assessment Author 9 01/29/2025 3:56 PM EDT Farnaz Snyder MA * How difficult have these problems made it for you to do your work, take care of things at home, or get along with other people? Answer Date of Assessment Author Not difficult at all 01/29/2025 3:56 PM EDT Farnaz Dasilva MA * Over the last 2 weeks, how often have you been bothered by any of the following problems? Question Answer Date of Assessment Author Feeling nervous, anxious, or on edge 2 01/29/2025 3:59 PM EDT Margaret Snyder MA Not being able to stop or control worrying 0 01/29/2025 3:59 PM MEAGHANT Margaret Snyder MA Worrying too much about different things 2 01/29/2025 3:59 PM MEAGHANT Margaret Snyder MA Trouble relaxing 1 01/29/2025 3:59 PM EDT Farnaz Waterman MA Being so restless that it is hard to sit still 1 01/29/2025 3:59 PM EDT Margaret Snyder MA Becoming easily annoyed or irritable 1 01/29/2025 3:59 PM MEAGHANT Margaret Snyder MA Feeling afraid as if somethi ng awful might happen 0 01/29/2025 3:59 PM MEAGHANT Margaret Snyder MA FAY-7 Total Score 7 01/29/2025 3:59 PM EDT Farnaz Snyder MA documented as of this encounter Plan of Treatment Not on file documented as of this encounter Visit Diagnoses Not on filedocumented in this encounter Care Teams Tail Puller Relationship Specialty Start Date End Date Fatemeh Rios MD [address] [place] [address] PCP - General Family Medicine 06/12/17 documented as of this encounter
[2025-02-24 02:46] LABS: CT PCR NOT DETECTED (Not Detect.); NG PCR NOT DETECTED (Not Detect.)
[2025-02-24 14:39] LABS: Trichomonas vaginalis RNA NOT DETECTED (NOT DETECTED)
== END 2025-02-23 16:11 | disposition home or self-care (01) ==
LOC: HO.HHCLNP 16:10
PROVIDERS: Visit Provider Advanced Practice Midwife
DX: Z11.3 Encounter for screening for infections with a predominantly sexual mode of transmission (principal)
CPT/HCPCS: 87491; 87591; 87661

== ENCOUNTER 2025-03-02 08:28 | Outpatient (REF) | payer OTHER, SELFPAY ==
--- NOTE | ~2025-03-02 | US_ITS ---
EXAMINATION: US DIAGNOSTIC ULTRASOUND BREAST, RIGHT CLINICAL INFORMATION: Right breast upper outer quadrant palpable lump for many years without any changes.. COMPARISON: No relevant prior imaging available for comparison. TECHNIQUE: Ultrasound of the breast is performed with real-time best scale imaging and color Doppler. FINDINGS: Targeted color Doppler ultrasound scanning in the upper outer quadrant of the right breast area of patient's palpable lump demonstrates normal dense fibroglandular breast tissue. There is no sonographic abnormal findings. Results are discussed with the patient at time of visit. US/US breast RT limited mamm only IMPRESSION: Normal fibroglandular breast tissue in the upper outer quadrant area of patient's palpable lump. No sonographic abnormal findings to account for the palpable lump. Recommend clinical evaluation and follow-up. ASSESSMENT: BI-RADS 1: Negative RECOMMENDATION: Clinical evaluation follow-up. Electronically signed by: Tamika Clark DO 03/02/2025 09:40 AM EDT
--- OUTSIDE RECORDS SUMMARY | 2025-03-02 08:42 | XMS_ITS | Encounter Summary ---
Author Organization [employer] Address [address] [facility] [address] [address] 7[address] [place] [address] Care Team Providers Care Business Technology Architect Name Role Phone Fatemeh Rios MD Primary Care Provider [phone] Reason for Visit * Reason Onset Date Comments Med Refill 01/26/2025 Encounter Details Date Type Department Care Team ([facility] st Contact Info) Description 01/26/2025 Refill [facility] MED & PEDS [address] [place] [address] Lyndsey Mccormack MD [address] [place] [address] Social History Tobacco Use Types Packs/Day Years [...] on filedocumented in this encounter Care Teams Business Technology Architect Relationship Specialty Start Date End Date Fatemeh Rios MD [address] [place] [address] PCP - General Family Medicine 06/12/17 documented as of this encounter
[2025-03-02 11:47] LABS: HIV AB/AG Nonreactive (Nonreactive); HIV Num 1 0.06 S/CO (0.00-0.99); Syphilis Screen Nonreactive (Nonreactive)
== END 2025-03-02 08:29 | disposition home or self-care (01) ==
LOC: HO.MAMMO 08:28
PROVIDERS: PCP Family Medicine; Visit Provider Advanced Practice Midwife
DX: N63.11 Unspecified lump in the right breast, upper outer quadrant (principal); Z20.2 Contact with and (suspected) exposure to infections with a predominantly sexual mode of transmission
CPT/HCPCS: 36415; 76642; 86780; 87389

== ENCOUNTER → 2025-03-02 08:30 | Outpatient (BNV) | payer OTHER, SELFPAY | PROVIDERS: PCP Family Medicine; Visit Provider Internal Medicine | DX: N63.11 Unspecified lump in the right breast, upper outer quadrant (principal) | CPT/HCPCS: 76642 ==

== ENCOUNTER 2025-07-02 08:03 | Outpatient (AMB) | payer OTHER, SELFPAY ==
--- OUTSIDE RECORDS SUMMARY | 2025-07-02 08:06 | XMS_ITS | Encounter Summary ---
Author Organization [employer] Address [address] [facility] [address] 7[address] [place] [address] Care Team Providers Care Rose Grading Supervisor Name Role Phone Fatemeh Rios MD Primary Care Provider Encounter Details Date Type Department Care Team (Latest Contact Info) Description 09/20/2018 Abstract [facility] CONVERSIONS Dental, Provider, DDS Social History [...] on filedocumented in this encounter Care Teams Rose Grading Supervisor Relationship Specialty Start Date End Date Fatemeh Rios MD [address] [place] [address] PCP - General Family Medicine 06/12/17 documented as of this encounter
--- OUTSIDE RECORDS SUMMARY | 2025-07-02 08:06 | XMS_ITS | Encounter Summary ---
Author Organization [employer] Address [address] [place] [address] 7t [place] [address] Care Team Providers Care Final Inspector And Tester Name Role Phone Fatemeh Rios MD Primary Care Provider [phone] Reason for Referral * Imaging (Routine) - Closed Specialty Diagnoses / Procedures Referred By Chris aguilar Referred To Contact Radiology Diagnoses Right inguinal pain Pelvic pain Procedures CT Abdomen Pelvis w/ Contrast Fatemeh Rios MD [address] [place] [address] Phone: tel: fax: [address] Phone: tel: fax: Referral ID Status Reason Start Date Expiration Date Visits Re quested Visits Authorized [id number] Closed 04/13/2023 04/12/2024 1 1 Encounter Details Date Type Department Care Team (Late st Contact Info) Description 04/13/2023 Orders Only [facility] [address] [place] [address] Fatemeh Rios MD [address] [place] [address] Right inguinal pain (Primary Dx); Pelvic pain [...] as of this encounter Plan of Treatment Scheduled Orders Name Type Priority Associated Diagnoses Orde r Schedule CT Abdomen Pelvis w/ Contrast Imaging Routine Right inguinal pain Pelvic pain Expected: 04/13/2023, Expires: 04/13/2024 documented as of this encounter Visit Diagnoses Diagnosis Right inguinal pain- Primary Abdominal pain, right lower quadrant Pelvic pain documented in this encounter Care Teams Final Inspector And Tester Relationship Specialty Start Date End Date Fatemeh Rios MD [address] [place] [address] PCP - General Family Medicine 06/12/17 documented as of this encounter
--- OUTSIDE RECORDS SUMMARY | 2025-07-02 08:06 | XMS_ITS | Encounter Summary ---
Author Organization [employer] Address 75 [facility] [address]t [place] [address] Care Team Providers Care Fiscal Clerk Name Role Phone Fatemeh Rios MD Primary Care Provider [phone] Encounter Details Date Type Department Care Team (Late st Contact Info) Description 06/08/2023 Orders Only [facility] MEDICINE [address] [place], [place] [phone] Fatemeh Rios MD [address] [place], [place] [phone] Hemorrhoids, unspecified hemorrhoid type (Primary Dx) Social [...] Primary documented in this encounter Care Teams Fiscal Clerk Relationship Specialty Start Date End Date Fatemeh Rios MD [address] [place], [place] [phone] PCP - General Family Medicine 06/12/17 documented as of this encounter
--- OUTSIDE RECORDS SUMMARY | 2025-07-02 08:06 | XMS_ITS | Encounter Summary ---
Author Organization [employer] Address [address] [facility] [address] [place] [address] Care Team Providers Care Dining Room Helper Name Role Phone Fatemeh Rios MD Primary Care Provider [phone] Reason for Visit * Reason Onset Date Comments Med Refill 07/01/2025 Encounter Details Date Type Department Care Team ([facility] st Contact Info) Description 07/01/2025 Refill [facility] MEDICINE [address] [place], [place] [phone] Fatemeh Rios MD [address] [place] [address] Social History Tobacco Use Types Packs/Day Years Used Date Smoking Tobacco: Never Passive Smoke Exposure: Never Smokeless Tobacco: Never Alcohol Use Standard [...] Diagnoses Not on filedocumented in this encounter Additional Health Concerns Assessment Noted Time PHQ-9 Depression Total Score: 9 01/30/20 25 3:56 PM EDT documented as of this encounter Care Teams Dining Room Helper Relationship Specialty Start Date End Date Fatemeh Rios MD [address] [place] [address] PCP - General Family Medicine 06/12/17 documented as of this encounter
--- OUTSIDE RECORDS SUMMARY | 2025-07-02 08:06 | XMS_ITS | Encounter Summary ---
Author Organization [employer] Address [address] [facility] [address] [place] [address] Care Team Providers Care Sprinkler Fitter Name Role Phone Fatemeh Rios MD Primary Care Provider [phone] Encounter Details Date Type Department Care Team (Latest Contact Info) Description 03/21/2021 Abstract [facility] CONVERSIONS Dental, Provider, DDS Social History Tobacco [...] on filedocumented in this encounter Care Teams Sprinkler Fitter Relationship Specialty Start Date End Date Fatemeh Rios MD [address] [place] [address] PCP - General Family Medicine 06/12/17 documented as of this encounter
--- OUTSIDE RECORDS SUMMARY | 2025-07-02 08:06 | XMS_ITS | Encounter Summary ---
Author Organization [employer] Address [address] [facility] [address] [place] [address] Care Team Providers Care Fiscal Services Manager Name Role Phone Fatemeh Rios MD Primary Care Provider [phone] Reason for Visit * Reason Onset Date Comments Medication Question 05/30/2023 Encounter Details Date Type Department Care Team ([facility] Contact Info) Description 05/30/2023 Telephone [facility] MEDICINE [address] [place], [place] [phone] Fatemeh Rios MD [address] [place], [place] [phone] Medication Question Social History Tobacco Use Types [...] Rojas she was receiving the medication through [facility] but is no longer attending there. Please contact pt at [phone] documented in this encounter Plan of Treatment Not on file documented as of this encounter Visit Diagnoses Not on filedocumented in this encounter Care Teams Fiscal Services Manager Relationship Specialty Start Date End Date Fatemeh Rios MD [address] [place] [address] PCP - General Family Medicine 06/12/17 documented as of this encounter
--- OUTSIDE RECORDS SUMMARY | 2025-07-02 08:06 | XMS_ITS | Clinical Summary ---
Author Organization [employer] Address [address] [facility] [address] [place] [address] Care Team Providers Care Bus Operator Name Role Phone Chuck Rios MD Primary Care Provider [phone] Allergies Active Allergy Reactions Criticality Noted Date Comments Squid Oil 09/25/2019 Medications valACYclovir (Valtrex) 500 MG tablet TAKE 1 TABLET BY MOUTH EVERY DAY 30 tablet 2 01/16/2025 Active amphetamine-dex troamphetamine XR (Adderall XR) 20 MG 24 hr capsule TAKE 1 CAPSULE BY MOUTH EVERY DAY. DO NOT CRUSH OR CHEW. 30 capsule 05/27/2025 Active Active Problems Problem Noted Date Diagnosed Date Anal fissure 06/02/2024 Intestinal malabsorption following gastrectomy 0 06/02/2024 Elevated BP without diagnosis of hypertension Assessment & Plan (02/02/2025 9:13 AM EDT): -Goal BP < 140/90 per JNC-8 and < 130/80 per ACC/AHA guideline (Treatment threshold >=140/90) -Continue working on lifestyle modifications -Recommended self-monitoring BP. -Treatment Hx: hydrochlorothiazide, but BP had normalized after bariatric surgery Assessment & Plan (02/25/2024 10:11 AM EDT): -Goal BP < 140/90 per JNC-8 and < 130/80 per ACC/AHA guideline (Treatment threshold >=140/90) -Continue working on lifestyle modifications -Recommended self-monitoring BP. -Continue current medications: -Treatment Hx: hydrochlorothiazide, but BP had normalized after bariatric surgery -Follow up in 3-6 mo, sooner if any problem arises Hemorrhoids 08/16/2023 Assessment & Plan (02/02/2025 9:15 AM EDT): - s/p hemorrhoidectomy on 07/20/[address] Santana - twila sedentary lifestyle - prevent constipation Assessment & Plan (08/17/2023 4:16 PM EST): - s/p hemorrhoidectomy on 07/20/[address] Santana - twila sedentary lifestyle - prevent constipation Mood disorder 2023 Assessment & Plan (01/26/2025 1:53 PM EDT): - Previous BHS: [facility] - Pt is also diagnosed with ADHD - Pt has tried multiple different medications: methylphenidate; amphetamine; clonidine; bupropion; escitalopram; lamotrigine - Pt was taking fluoxetine and guanfacine when she was being discharged from [facility] fluoxetine - Obtain medical record from [facility] for correct diagnosis - Refer to [facility] for diagnosis and treatment recommendation Assessment & Plan (02/20/2024 4:37 PM EDT): - Previous B[facility]: [facility] - Pt is also diagnosed with ADHD - Pt has tried multiple different medications: methylphenidate; amphetamine; clonidine; bupropion; escitalopram; lamotrigine - Pt was taking fluoxetine and guanfacine when she was being discharged from [facility] fluoxetine - Obtain medical record from [facility] for correct diagnosis - Refer to [facility] for diagnosis and treatment recommendation Assessment & Plan (08/16/2023 6:28 PM EST): - Previous B[facility]: [facility] - Pt is also diagnosed with ADHD - Pt has tried multiple different medications: methylphenidate; amphetamine; clonidine; bupropion; escitalopram; lamotrigine - Pt was taking fluoxetine and guanfacine when she was being discharged from [facility] fluoxetine - Obtain medical record from [facility] for correct diagnosis - Refer to [facility] for diagnosis and treatment recommendation Assessment & Plan (2023 5:01 PM EDT): - Previous BHS: [facility] - Pt has tried multiple different medications: methylphenidate; amphetamine; clonidine; bupropion; escitalopram; lamotrigine - Pt was taking: Fluoxetine and Guanfacine, before she was being discharged from [facility] - PCP will continue prescribing Fluoxetine and [...] History of cholecystectomy 03/22/2023 Assessment & Plan (02/02/2025 9:14 AM EDT): - no post-cholecystectomy diarrhea Assessment & Plan (2023 4:59 PM EDT): - no post-cholecystectomy diarrhea History of pancreatitis 03/22/2023 Assessment & Plan (02/02/2025 9:14 AM EDT): Hospitalized in 07/2022, resolved with supportive care Assessment & Plan (2023 4:58 PM EDT): Hospitalized in 07/2022, resolved with supportive care ADHD 03/22/2023 Assessment & Plan (02/02/2025 9:16 AM EDT): - Previous B[facility]: [facility], pt self-discontinued counseling service. - Pt has tried multiple different medications: methylphenidate; amphetamine; clonidine; bupropion; escitalopram; lamotrigine, and guanfacine -dextroamphetamine-amphetamine was the most effective medication per pt -pt signed medical release so that we can obtain record from [facility] -continue judicious use of Adderall; check the status of ARE[facility] ATTENDANT visit Assessment & Plan (02/20/2024 4:37 PM EDT): - Previous B[facility]: [facility], pt self-discontinued counseling service. - Pt has tried multiple different medications: methylphenidate; amphetamine; clonidine; bupropion; escitalopram; lamotrigine, and guanfacine -dextroamphetamine-amphetamine was the most effective medication per pt -will prescribe Adderall -pt agreed to be evaluated by [facility] for correct diagnosis and appropriate medication. -pt signed medical release so that we can obtain record from [facility] Assessment & Plan (08/16/2023 6:25 PM EST): - Previous B[facility]: [facility], pt self-discontinued counseling service. - Pt has tried multiple different medications: methylphenidate; amphetamine; clonidine; bupropion; escitalopram; lamotrigine, and guanfacine -dextroamphetamine-amphetamine was the most effective medication per pt -will prescribe Adderall -pt agreed to be evaluated by [facility] for correct diagnosis and appropriate medication. -pt signed medical release so that we can obtain record from [facility] Assessment & Plan (2023 5:01 PM EDT): - Previous BHS: [facility] - Pt has tried multiple different medications: methylphenidate; amphetamine; clonidine; bupropion; escitalopram; lamotrigine - Pt was taking: Fluoxetine and Guanfacine, before she was being discharged from [facility] - PCP will continue prescribing Fluoxetine and Guanfacine - Pt no longer receiving counseling services - She was able to contract her safety today S/P laparoscopic sleeve gastrectomy 03/22/2023 Assessment & Plan (01/26/2025 1:52 PM EDT): -hx of sleeve gastrectomy in 2018 at [facility] -she has regained weight and developed some complications -pt started a new weight management clinic, at [facility], seen by bariatric surgeon on december 01, 2021 - s/p Revision of Gastrectomy in October 2022 Assessment & Plan (01/26/2025 6:10 AM EDT): >>ASSESSMENT AND PLAN FOR HISTORY OF SLEEVE GASTRECTOMY WRITTEN ON 03/22/2023 12:39 PM BY HÉCTOR SETHI -hx of sleeve gastrectomy in 2018 -she has regained weight and developed some complications -pt started a new weight management clinic, at [facility], seen by bariatric surgeon on december 01, 2021 - s/p Revision of Gastrectomy in October 2022 Assessment & Plan (01/26/2025 6:10 AM EDT): >>ASSESSMENT AND PLAN FOR HISTORY OF SLEEVE GASTRECTOMY WRITTEN ON 08/16/2023 6:41 PM BY CHUCK RIOS MD -hx of sleeve gastrectomy in 2018 at [facility] [place] -she has regained weight and developed some complications -pt started a new weight management clinic, at [facility], seen by bariatric surgeon on december 01, 2021 - s/p Revision of Gastrectomy in October 2022 Assessment & Plan (01/26/2025 6:10 AM EDT): >>ASSESSMENT AND PLAN FOR HISTORY OF SLEEVE GASTRECTOMY WRITTEN ON 02/20/2024 4:37 PM BY ALBERT MTZ -hx of sleeve gastrectomy in 2018 at [facility] -she has regained weight and developed some complications -pt started a new weight management clinic, at [facility], seen by bariatric surgeon on december 01, 2021 - s/p Revision of Gastrectomy in October 2022 Recurrent herpes labialis 08/08/2012 Assessment & Plan (02/02/2025 9:15 AM EDT): - continue episodic use of valacyclovir Assessment & Plan (08/16/2023 6:29 PM EST): - continue episodic use of valacyclovir Resolved Problems Problem Noted Date Diagnosed Date Resolved Date Laceration of thumb 06/02/2024 02/03/20 25 BMI 31.0-31.9,adult 06/02/2024 01/27/20 25 BMI 32.0-32.9,adult 06/02/2024 01/27/20 25 BMI 37.0-37.9, adult 06/02/2024 025 Obesity 06/02/2024 02/02/2025 Obesity 08/16/2023 08/16/2023 Encounters Date Type Department Care Team Description 07/01/2025 Refill [facility] [address] [place] [address] Chuck Rios MD 05/27/2025 Refill [facility] [address] [place], [place] [phone] Chuck Rios MD 04/29/2025 Refill [facility] [address] [place], [place] [phone] Chuck Rios MD from Last 3 Months [...] Passive Smoke Exposure: Never Smokeless Tobacco: Never Tobacco Cessation:Counseling Given: [...] Q2 Not on file 01/19/2025 Comments No Intention Date Recorded No desire to become (finding) 0 02/23/2025 Sex and Gender Information Value Date Recorded Sex Assigned at Female 07/10/2022 10:19 AM EDT Legal Sex Female 10:19 AM EDT Gender Identity Female 07/10/2022 10:19 AM EDT Sexual Orientation Straight 07/10/2022 10 :19 AM EDT Last Filed Vital Signs Vital Sign Reading Time Taken Comments Blood Pressure 128/84 03/23/2025 9:26 AM EDT Pulse 91 03/23/2025 9:26 AM EDT Temperature 36.2 C (97.1 F) 03/23/2025 9:26 AM EDT Respiratory Rate 16 03/23/2025 9:26 AM EDT Oxygen Saturation 98% 03/23/2025 9:26 AM EDT Inhaled Oxygen Concentration - - Weight 64.9 kg (143 lb 2 oz) 03/23/2025 9:26 AM EDT Height 157.5 cm (5' 2 ) 03/23/2025 9:26 AM EDT Body Mass Index 26.18 03/23/2025 9:26 AM EDT Plan of Treatment Health Maintenance Due Date Last Done Comments Influenza Vaccine (#1) 2025 , 07/16/2019, 05/22/2018, Additional history exists Depression Monitoring 08/01/2025 01/29/2025, 025 Alcohol/Substance Use Screening 01/26/2026 01/26/2025 Disability Screening 01/29/2026 01/29/2025 SDOH Screening 01/29/2026 01/29/2025 Pap Smear 02/22/2026 02/22/2023 Family Planning (PISQ) 02/23/2026 02/23/2025 Tobacco Screening 03/23/2026 03/23/2025 DTaP/Tdap/Td Vaccines (8 - Td or Tdap) [...] Completed 10/22/2020, 08/27/2020, 07/23/2020, Additional history exists Hepatitis C Screening Completed 03/22/2023, 020 COVID-19 Vaccine Completed 01/26/2025, , 05/02/2021, Additional history exists HIV Screening Completed 03/02/2025, 03/22/2023 Meningococcal B Vaccine Aged Out No l onger eligible based on patient's age to complete this topic Pneumococcal Vaccine: Pediatrics (0 to 5 Years) and At-Risk Patients (6 to 49) Years Aged Out No longer eligible based on patient's age to complete this topic RSV under 20 months Aged Out No longe r eligible based on patient's age to complete this topic Rotavirus Vaccines Aged Out No longer eligible based on patient's age to complete this topic Procedures Procedure Name Priority Date/Time Associated Diagnosis Comments HIV 1/2 ANTIGEN/ANTIBODY, FOURTH GENERATION W/RFL Routine 03/02/2025 10:00 AM EDT Screening examination for venereal disease HEPATITIS C ANTIBODY REFLEX Routine 03/22/2023 12:03 PM EDT IMAGE-GUIDED PAP W/AGE BASED SCR,W/CT/NG/TRICH Routine 02/22/2023 11:58 AM EDT Cervical cancer screening Encntr screen for infections w sexl mode of transmiss from Last 3 Months or Most Recently Relevant to Health Maintenance Results * HIV-1/2 Antigen and Antibodies, Fourth Generation, with Reflexes (03/02/2025 10:00 AM EDT) HIV AB/AG Nonreactive Nonreactive [facility] Comment:HIV-1 p24 Ag and/or HIV-1/HIV-2 Ab not detected.A test result that is nonreactive does not exclude thepossibility of exposure to or infection with HIV-1 and/orHIV-2. Nonreactive results in this assay for individualswith prior exposure to HIV-1 and/or HIV-2 may be due toantigen and antibody levels that are below the limit ofdetection of this assay.The [employer] HIV Ag/Ab Combo assay result andsupplemental assay results should be interpreted inconjunction with the patient's clinical presentation,history and other laboratory results. If the results areinconsistent with clinical evidence, additional testing issuggested to confirm the result. Blood Venous blood specimen / Unknown 03/02/2025 10:00 AM EDT 03/02/2025 11:08 AM EDT us Sandra Worthington [facility] BLOOD ORDERABLES Anupama l Result [facility] [address] [place] [address] [phone] * Hepatitis C Antibody Reflex (03/22/2023 12:03 PM EDT) Hepatitis C Antibody Nonreactive Nonreactive [facility] Comment:Antibodies to HCV no t detected; does not exclude early acuteHCV infection. 03/22/2023 12:0 3 PM EDT 03/22/2023 1:18 PM EDT [facility] External Provider LAB BLO OD ORDERABLES Final Result [facility] [address] [place] [address] [phone] * Image-Guided Pap with Age-Based Screening??with CT/NG,??Trichomonas (02/22/2023 11:58 AM EDT) Comment Spout Comment: This order for age-based cervical cancer and STI screening follows ACOG guidelines(PB 168, 140, BLD097). See individual assays for performing site location. Clinical Information: None given [facility] LMP: NONE GIVEN [facility] Prev. PAP: NONE GIVEN [facility] Prev. BX: NONE GIVEN [facility] SOURCE: None given [facility] Statement Of Adequacy: [facility] Comment: Satisfactory for evaluation. Endocervical/transformation zone component present. Interpretation/Re sult: Negative for intraepithelial lesion or malignancy. [facility] Infection Shift in vaginal rody suggestive of bacterial vaginosis. [facility] COMMENT: This Pap test has been evaluated with computer assisted technology. [facility] Rn Er: [facility] Comment: KF, CT(ASCP) CT screening location: [place] [address] Review Rn Er: [facility] Comment: CMG, CT(ASCP) CT screening location: [place] [address] (Always Message) [facility] Comment: EXPLANATORY NOTE: The Pap is a [...] RNA, TMA, Urogenital NOT DETECTED NOT DETECTED [facility] [place] [employer] Neisseria gonorrhoeae RNA, TMA, Urogenital NOT DETECTED NOT DETECTED [facility] [place] [employer] Comment [facility] [employer] [place] [facility] Comment: The analytical performance characteristics of this assay, when used to test [facility](TM) specimens have been determined by [facility]. The modifications have not been cleared or approved by the FDA. This assay has been validated pursuant to the CLIA regulations and is used for clinical purposes. For additional information, please refer to https://ihiji.Boxed/faq/HSY201 (This link is being provided for information/ educational purposes only.) Trichomonas vaginalis, QL, TMA, PAP Vial NOT DETECTED NOT DETECTED [facility] [place] [employer] Comment: The analytical performance characteristics of this assay have been determined by [facility]. The modifications have not been cleared or approved by the FDA. This assay has been validated pursuant to the CLIA regulations and is used for clinical purposes. For additional information, please refer to http://ihiji.Boxed/ faq/Trichomonastma (This link is being provided for information/ educational purposes only.) Pap Vial 02/22/2023 11:5 8 AM EDT 02/23/2023 2:33 AM EDT Sandra Worthington [facility] CYTOLOGY ORDERABLES F inal Result [facility] [address], [place] [address] [facility] [place] [employer] [address] [place] [address] from Last 3 Months or Most Recently Relevant to Health Maintenance Insurance [employer] Care Teams Bus Operator Relationship Specialty Start Date End Date Chuck Rios MD [address] [place] [phone] PCP - General Family Medicine 06/12/17
--- OUTSIDE RECORDS SUMMARY | 2025-07-02 08:06 | XMS_ITS | Clinical Summary ---
Author Organization [facility] Address [address] [place] [address] Care Team Providers Care Asbestos Brake Lining Finisher Helper Name Role Phone Fatemeh Rios MD Primary Care Provider [phone] Surgical History Surgery Date Site/Laterality Comments OTHER [...] Health Maintenance Due Date Last Done Comments Cervical Cancer Screening: Pap Smear 2018 Hepatitis C Screening 08/20/2022 Social Influencers of Health Screening 08/20/2022 Depression Screening 09/10/2024 Influenza Vaccine (#1) 2025 , 07/16/2019, 05/22/2018, Additional history exists DTaP,Tdap,and Td Vaccines (8 - Td or Tdap) 07/23/2030 07/23/2020, 04/10/2016, 08/04/2009, Additional history exists RSV Immunization Adult Patients (1 - 1-dose 75+ series) 2072 HIB Vaccines Completed 04/06/1999, 09/1997, 1997, Additional history exists IPV Vaccines Completed 04/29/2001, 03/11, 1997, Additional history exists MMR Vaccines Completed 04/29/2001, 02/08/1998 HPV Vaccines Completed 02/02/2010, 09/11, 08/04/2009 Varicella Vaccines Completed 08/08/2012, 11/09/2011 Hepatitis A Vaccines Completed 10/03/2013, 01/01/20 10 Meningococcal ACWY Vaccine Completed 10/08/2014, Hepatitis B Vaccines Completed 10/22/2020, 08/27/2020, 07/23/2020, Additional history exists COVID-19 Vaccine Completed 01/26/2025, , 04/04/2021 HIV Screening Completed 03/02/2025 Meningococcal B Vaccine Aged Out No l onger eligible based on patient's age to complete this topic Pneumococcal Vaccine: Pediatrics (0 to 5 Years) and At-Risk Patients (6 to 49 Years) Aged Out No longer eligible based on patient's age to complete this topic RSV Immunization Patients Under 20 months Aged Out No longer eligible based on patient's age to complete this topic Care Teams Asbestos Brake Lining Finisher Helper Relationship Specialty Start Date End Date Fatemeh Rios MD [address] [place] [phone] PCP - General 07/29/21
--- OUTSIDE RECORDS SUMMARY | 2025-07-02 08:06 | XMS_ITS | Encounter Summary ---
Author Organization [employer] Address [address] [facility] [address] [place] [address] Care Team Providers Care Regulatory Analyst Name Role Phone Fatemeh Rios MD Primary Care Provider [phone] Encounter Details Date Type Department Care Team (Late st Contact Info) Description 06/01/2023 Orders Only [facility] [address] [place], [place] [phone] Fatemeh Rios MD [address] [place], [place] [phone] Attention deficit hyperactivity disorder (ADHD), predominantly inattentive [...] disorder documented in this encounter Care Teams Regulatory Analyst Relationship Specialty Start Date End Date Fatemeh Rios MD [address] [place] [address] PCP - General Family Medicine 06/12/17 documented as of this encounter
--- OUTSIDE RECORDS SUMMARY | 2025-07-02 08:06 | XMS_ITS | Encounter Summary ---
Author Organization [employer] Address [address] [facility] [address] [place] [address] Care Team Providers Care Consulting Sales Manager Name Role Phone Fatemeh Rios MD Primary Care Provider [phone] Reason for Visit * Reason Onset Date Comments Med Refill 01/26/2025 Encounter Details Date Type Department Care Team (Late st Contact Info) Description 01/26/2025 Refill [facility] [address] [place] [address] Lyndsey Mccormack MD [address] [place] [address] Social History Tobacco Use Types Packs/Day Years [...] of Assessment Author 9 01/29/2025 3:56 PM MEAGHANT Farnaz Snyder MA * How difficult have [...] about different things 2 01/29/2025 3:59 PM EDT Margaret Snyder MA Trouble relaxing 1 01/29/2025 3:59 PM EDT Farnaz Waterman MA Being so restless that it is hard to sit still 1 01/29/2025 3:59 PM MEAGHANT Margaret Snyder MA Becoming easily annoyed or irritable 1 01/29/2025 3:59 PM MEAGHANT Margaret Snyder MA Feeling afraid as if somethi ng awful might happen 0 01/29/2025 3:59 PM MEAGHANT Margaret Snyder MA FAY-7 Total Score 7 01/29/2025 3:59 PM MEAGHANT Farnaz Snyder MA documented as of this encounter Plan of Treatment Not on file documented as of this encounter Visit Diagnoses Not on filedocumented in this encounter Care Teams Consulting Sales Manager Relationship Specialty Start Date End Date Fatemeh Rios MD [address] [place] [phone] PCP - General Family Medicine 06/12/17 documented as of this encounter
--- NOTE | 2025-07-02 08:08 | A.OFFVIS_ITS ---
Vital Signs 07/02/25 08:24 Height 5 ft 2 in Weight 136 lb BMI 24.9 BP 133/70 Blood Pressure Location Rt brachial Position Sitting Pulse 88 Intake Visit Reasons: mass upper outer breast Intake Note: This patient presents for an assessment for mass on the upper outer breast. Pt c/o; right breast mass upper outer breast, occasional discomfort. [employer] Required: No Accompanied by: Self / Same As Patient Allergies No Known Allergies Allergy (Verified 07/02/25 08:25) Medication List - Last Reconciled 07/02/25 by Shelton Santana MD dextroamphetamine-amphetamine 20 mg ER 1 cap PO QAM valacyclovir (Valtrex) 500 mg PO DAILY HPI HPI mass upper outer breast: Details: 30-year-old female referred for question of a right breast mass. She says that since she was in high school, she always fat that she had a lump on her right breast. She says that she had lost 100 lb the past 2 years since she had bariatric surgery and she felt that the mass was more obvious She did have an ultrasound done last February, which just revealed fibroglandular breast tissue without any masses She was referred to me for another opinion Her menarche was at the age of 15. She has never been . She denies any family history of breast cancer. She still has regular periods. She denies any nipple or skin changes. [facility] Medical History (Updated 07/02/25 @ 08:47 by Shelton Santana MD) Abdominal wall asymmetry Breast mass, right Anal fissure Hemorrhoids with complication BMI 37.0-37.9, adult Intestinal malabsorption following gastrectomy Obesity Intestinal malabsorption Surgical History H/O: hemorrhoidectomy (07/20/23) S/P laparoscopic sleeve gastrectomy History of sleeve gastrectomy Family History Father No problems noted. Mother Cancer Arthritis of knee Diabetes Hypertension Brother No problems noted. Brother No problems noted. Brother No problems noted. Sister No problems noted. Sister No problems noted. Social History Alcohol intake: unknown Comment: NONE Patient Tobacco Use Status: Never used Tobacco Review of Systems Const Denies chills and Denies fever(s) Card Denies chest pain, Denies dyspnea and Denies dyspnea on exertion Resp Denies cough, Denies dyspnea and Denies dyspnea on exertion GI Denies hematochezia and Denies change in bowel habits Denies hematuria Musc Denies back pain and Denies limited range of motion Neuro Denies focal weakness and Denies convulsions Psych Denies depression and Denies mood swings Physical Exam Vital Signs: Last Vital Signs Pulse 88 07/02/25 08:24 BP 133/70 07/02/25 08:24 BMI result Body Mass Index 24.9 Const General: comfortable and no acute distress Orientation/consciousness: patient oriented x3 Neck Neck: Yes no lymphadenopathy Chest Other: No palpable breast masses, no nipple or skin changes, no axillary lymphadenopathy Resp Auscultation: clear to auscultation bilaterally Cardio Rhythm: regular rhythm GI Other: No palpable hernias, some tenderness along the rectus abdominis muscle on the right Palpation (GI): Soft to palpation, nontender and no guarding Neuro General: patient oriented x3 Assessment & Plan Assessment & Plan (1) Breast mass, right: Code(s): N63.10 - Unspecified lump in the right breast, unspecified quadrant Category: Medical Plan: She was referred to me for a question of a right breast mass. Current physical exam as well as ultrasound findings do not suggest this. She does have a lumpy consistent with this to her breasts. I assured her about my findings above. I did tell her that if she notices anything discrete, she should come back to the office to be re-evaluated. (2) Abdominal wall asymmetry: Code(s): R19.8 - Other specified symptoms and signs involving the digestive system and abdomen Category: Medical Plan: She asked me to check her abdominal wall as she thought that she may have a hernia. She says that she thought that the right side of the abdomen was bulging that she has had had pain in the muscles periodically. Physical exam does not suggest any palpable hernia. She does have some tenderness along the rectus abdominis muscle. I told her that if she notices any mass down the line, she should come back to the office to be re-evaluated. Her ultrasound does not suggest this either. Coding Level of Care Code New Pt Level 3 (69193) Diagnoses Breast mass, right N63.10 Abdominal wall asymmetry R19.8
[2025-07-02 08:24] VITALS: BP 133/70; PULSE 88; BMI 24.9
== END 2025-07-02 08:53 | disposition home or self-care (01) ==
LOC: HO.HGS 08:03
PROVIDERS: PCP Family Medicine; Visit Provider Surgery
DX: N63.10 Unspecified lump in the right breast, unspecified quadrant (principal); R19.8 Other specified symptoms and signs involving the digestive system and abdomen
CPT/HCPCS: 99213